=== PATIENT | male | born 1985 | race Caucasian/White ===

== ENCOUNTER 2017-03-26 10:36 | Emergency (ER) | payer OTHER ==
[2017-03-26 10:44] VITALS: RESP 18
[2017-03-26] MEDS ORDERED: RX INFO: IV CONTRAST WAS GIVEN 1 EACH MISC MISCELLANE PRN (10:54)
[2017-03-26] MEDS ORDERED: AZITHROMYCIN 500 MG TAB PO STA (10:57)
[2017-03-26] MEDS ORDERED: DEXAMETHASONE SOD PHOSPHATE 10 MG/ML 1 ML VIAL IV STA (10:58)
[2017-03-26] MEDS ORDERED: IBUPROFEN 400 MG TAB PO STA (10:58)
[2017-03-26 11:22] LABS: Basophils # (A) 0.1 k/uL (0-0.2); Basophils % (A) 0 %; CH 30.6; CHCM 34.8; Eosinophils # (A) 0.1 k/uL (0-0.7); Eosinophils % (A) 1 %; HCT 42.1 % (39.0-53.0); HDW 2.75; HGB 14.6 gm/dL (13.0-17.5); Luc # (Auto) 0.43; Luc % (Auto) 3; Lymphocytes # (A) 1.5 k/uL (1.0-4.8); Lymphocytes % (A) 9 %; MCH 30.6 pg (25.0-35.0); MCHC 34.7 g/dL (31.0-37.0); MCV 88.2 fL (80.0-100.0); Mean Platelet Volume 6.7; Monocytes # (A) 1.3 k/uL (0-1.0); Monocytes % (A) 8 %; Neutrophils # (A) 13.2 k/uL (1.3-7.7); Neutrophils % (A) 79 %; RBC 4.77 m/uL (4.30-5.90); RDW 12.7 % (11.5-15.5); WBC 16.7 k/uL (3.8-10.6)
--- NOTE | 2017-03-26 11:29 | XR ---
EXAMINATION TYPE: XR chest 2V DATE OF EXAM: 03/26/2017 COMPARISON: NONE TECHNIQUE: PA and lateral views submitted. HISTORY: FLU-LIKE SYMPTOMS FINDINGS: The lungs are clear and there is no pneumothorax, pleural effusion, or focal pneumonia. Slightly pr ominent central interstitium. IMPRESSION: 1. Slightly prominent central interstitium may be related to reduced inspiration rather than intersti tial or viral pneumonitis. Correlate clinically.
[2017-03-26 11:41] LABS: ALT 83 U/L (21-72); AST 45 U/L (17-59); Alkaline Phosphatase 130 U/L (38-126); Anion Gap 12 mmol/L; Blood Urea Nitrogen 18 mg/dL (9-20); Calcium 9.2 mg/dL (8.4-10.2); Carbon Dioxide 27 mmol/L (22-30); Chloride 103 mmol/L (98-107); Glucose 106 mg/dL (74-99); Non-African American GFR(MDRD) >60 (>60 ml/min/1.73 sqM); Sodium 142 mmol/L (137-145); Total Protein 8.1 g/dL (6.3-8.2)
[2017-03-26] MEDS ORDERED: ACETAMINOPHEN TAB 500 MG TAB PO STA (12:05)
--- NOTE | 2017-03-26 13:10 | CT ---
EXAMINATION TYPE: CT soft tissue neck w con DATE OF EXAM: 03/26/2017 HISTORY: Difficulty swallowing and throat swelling for 2 weeks COMPARISON: NONE CT DLP: 841 mGycm. Automated Exposure Control for Dose Reduction was Utilized. TECHNIQUE: CT scan of the neck is performed with IV Contrast, patient injected with 100 mL of Omnipa que 300, axial images are obtained, coronal and sagittal reformatted images are reviewed. FINDINGS: Airway: Nasopharyngeal airway shows lobulated symmetric prominence of the posterior adenoidal tonsils . There is marked thickening of the palatine tonsils at level of oropharynx causing narrowing of naso pharyngeal and oropharyngeal airways. Region of epiglottis and vallecula appears within normal limits . Hypopharyngeal airway at level of vocal cords is unremarkable. Visualized thyroid gland and proxima l trachea are within normal limits. Visualized lung apices are clear. Parotid/submandibular glands: No gross abnormality seen. Carotid/Vascular Structures: No significant abnormality is seen. Osseous Structures: Reversal of normal cervical curvature is noted. This injection of dextroconvex sc oliosis or positioning centered in the thoracic spine. Other: Visualized main pulmonary artery is prominent at 3.2 cm on and axial images, CT finding is sug gestive of underlying pulmonary artery hypertension. Need to further investigate by nonemergent cardi ac echo should be based on clinical correlation. There are prominent scattered subcentimeter lymph nodes throughout the neck. There are also abnormal enlarged lymph nodes present bilaterally. For reference there is enlarged left submandibular lymph no de measuring 2.0 x 1.9 cm on axial image 37 x 3.4 cm craniocaudal dimension on sagittal image 71. The re are similar abnormal enlarged right neck lymph nodes at and above the hyoid bone submandibular lev el. No suspicious well-formed fluid collection is seen. There is streak artifact from multiple cavitary fillings involving the molar and premolar tooth bilat erally and maxillary and mandibular level. A few left-sided maxillary and mandibular teeth are absent . No active inflammation at this level is clearly seen. IMPRESSION: Suspect severe tonsillitis with neck adenopathy and mass effect on the nasopharyngeal and oropharyngeal airways. No well-formed fluid collection or abscess is present.
--- NOTE | 2017-03-26 13:40 | ED ---
Fever HPI - General Chief Complaint: Fever Stated Complaint: SORE THROAT, FLU LIKE SYMPTOMS Time Seen by Provider: 03/26/17 10:47 Source: patient Mode of arrival: ambulatory Limitations: no limitations - History of Present Illness Initial Comments: Patient complains of fevers and chills, as well as a sore throat. He just started taking azithromycin yesterday. He is still having fevers and chills. He did not take anything for the fever. He denies any chest or back pain. He has no belly pain. He has no nausea or vomiting. He has had no sick a be or presyncope. He has no neck pain or stiffness. He has no trouble opening his mouth. He is tolerating solid and liquid oral intake. - Related Data Home Medications Medication Instructions Recorded Confirmed Azithromycin [Zithromax Z-pack] See Taper PO DAILY 03/26/17 03/26/17 Dextroamphetamine/Amphetamine 10 mg PO DAILY 03/26/17 03/26/17 [Adderall] Ibuprofen [Motrin] 600 mg PO Q8HR PRN 03/26/17 03/26/17 Allergies Allergy/AdvReac Type Severity Reaction Status Date / Time No Known Allergies Allergy Verified 03/26/17 10:59 Review of Systems ROS Statement: Those systems with pertinent positive or pertinent negative responses have been documented in the HPI. ROS Other: All systems not noted in ROS Statement are negative. Past Medical History Additional Past Medical History / Comment(s): diverticulos History of Any Multi-Drug Resistant Organisms: None Reported Past Surgical History: No Surgical Hx Reported Past Psychological History: No Psychological Hx Reported Smoking Status: Current every day smoker Past Alcohol Use History: Occasional Past Drug Use History: None Reported General Exam Limitations: no limitations General appearance: alert, in no apparent distress Head exam: Present: atraumatic, normocephalic, normal inspection Eye exam: Present: normal appearance, PERRL, EOMI. Absent: scleral icterus, conjunctival injection, periorbital swelling ENT exam: Present: mucous membranes moist, other (Swollen tonsils with exudates) Neck exam: Present: normal inspection. Absent: tenderness, meningismus, lymphadenopathy Respiratory exam: Present: normal lung sounds bilaterally. Absent: respiratory distress, wheezes, rales, rhonchi, stridor Cardiovascular Exam: Present: regular rate, normal rhythm, normal heart sounds. Absent: systolic murmur, diastolic murmur, rubs, gallop, clicks GI/Abdominal exam: Present: soft, normal bowel sounds. Absent: distended, tenderness, guarding, rebound, rigid Extremities exam: Present: normal inspection, full ROM, normal capillary refill. Absent: tenderness, pedal edema, joint swelling, calf tenderness Back exam: Present: normal inspection Neurological exam: Present: alert, oriented X3, CN II-XII intact Psychiatric exam: Present: normal affect, normal mood Skin exam: Present: warm, dry, intact, normal color. Absent: rash Course Vital Signs 03/26/17 03/26/17 10:39 11:52 Temperature 98.9 F 101.4 F H Pulse Rate 120 H Respiratory 18 Rate Blood Pressure 135/80 O2 Sat by Pulse 98 Oximetry Medical Decision Making - Medical Decision Making Patient complains of fever and chills as well as sore throat. I gave him IV Decadron, IV antibiotics. I obtained a chest x-ray which is unremarkable. I obtained a CT of the neck which is negative for abscess or prevertebral soft tissue swelling. Patient is feeling much better on reevaluation. I gave him Motrin and Tylenol. His fever has come down. His vital signs improved. He is tolerating orotate. I do not believe he requires admission to the hospital at this time. He is stable for discharge and outpatient follow-up. - Lab Data Result diagrams: 03/26/17 11:10 03/26/17 11:10 Lab Results 03/26/17 03/26/17 03/26/17 Range/Units 11:10 11:10 11:10 WBC 16.7 H (3.8-10.6) k/uL RBC 4.77 (4.30-5.90) m/uL Hgb 14.6 (13.0-17.5) gm/dL Hct 42.1 (39.0-53.0) % MCV 88.2 (80.0-100.0) fL MCH 30.6 (25.0-35.0) pg MCHC 34.7 (31.0-37.0) g/dL RDW 12.7 (11.5-15.5) % Plt Count 270 (150-450) k/uL Neutrophils % 79 % Lymphocytes % 9 % Monocytes % 8 % Eosinophils % 1 % Basophils % 0 % Neutrophils # 13.2 H (1.3-7.7) k/uL Lymphocytes # 1.5 (1.0-4.8) k/uL Monocytes # 1.3 H (0-1.0) k/uL Eosinophils # 0.1 (0-0.7) k/uL Basophils # 0.1 (0-0.2) k/uL Sodium 142 (137-145) mmol/L Potassium 4.0 (3.5-5.1) mmol/L Chloride 103 (98-107) mmol/L Carbon Dioxide 27 (22-30) mmol/L Anion Gap 12 mmol/L BUN 18 (9-20) mg/dL Creatinine 0.88 (0.66-1.25) mg/dL Est GFR (MDRD) Af Amer >60 (>60 ml/min/1.73 sqM) Est GFR (MDRD) Non-Af >60 (>60 ml/min/1.73 sqM) Glucose 106 H (74-99) mg/dL Calcium 9.2 (8.4-10.2) mg/dL Total Bilirubin 1.0 (0.2-1.3) mg/dL AST 45 (17-59) U/L ALT 83 H (21-72) U/L Alkaline Phosphatase 130 H (38-126) U/L Total Protein 8.1 (6.3-8.2) g/dL Albumin 4.4 (3.5-5.0) g/dL Heterophile Antibody Negative (Negative) Disposition Clinical Impression: Tonsillitis Disposition: HOME SELF-CARE Condition: Good Instructions: Tonsillitis (ED) Referrals: Arvind Rosales MD [Primary Care Provider] - 1-2 days Time of Disposition: 13:40
[2017-03-26 13:46] VITALS: BP 120/68; PULSE 114; TEMP 99.6
== END 2017-03-26 13:45 | disposition home or self-care (01) ==
LOC: EC 10:36
DX: J03.90 Acute tonsillitis, unspecified (principal); F17.200 Nicotine dependence, unspecified, uncomplicated; Z79.899 Other long term (current) drug therapy
CPT/HCPCS: 36415; 80053; 85025; 86308; 71020; 70491; 99284; 96374; J1100; Q9967

== ENCOUNTER 2021-01-12 10:37 | Inpatient (IN) | payer BC, OTHER ==
[2021-01-12] MEDS ORDERED: SODIUM CHLORIDE 0.9% 1,000 ML IV STA (11:12)
[2021-01-12] MEDS ORDERED: KETOROLAC 15 MG/ML 1 ML VIAL IVP STA (11:12)
[2021-01-12] MEDS ORDERED: ONDANSETRON 4 MG/2 ML VIAL IVP STA (11:12)
--- NOTE | 2021-01-12 11:22 | ED ---
Abdominal Pain HPI - General Chief Complaint: Abdominal Pain Stated Complaint: Abd Pain Time Seen by Provider: 01/12/21 10:51 Source: patient Mode of arrival: ambulatory Limitations: no limitations - History of Present Illness Initial Comments: Patient is a 35-year-old male presenting to emergency Department with complaints of increasing lower abdominal pain over the past 5 days. Patient states he has had diverticulitis in the past, he is not sure if it feels similar or not. He does admit to some nausea and vomiting. He is having normal bowel movements. He states the pain started in the middle of his abdomen, now it feels lower on both the right and left sides. Denies any dysuria. He denies any fevers but has woken up and sweats over the last couple nights. No chest pain or shortness of breath, no cough. He has no further complaints at this time. Upon arrival to the ER, his vitals are stable. - Related Data Home Medications Medication Instructions Recorded Confirmed Dextroamphetamine/Amphetamine 20 mg PO TID 01/12/21 01/12/21 [Dextroamp-Amphetamin 20 mg Tab] Ibuprofen [Motrin] 800 mg PO QID PRN 01/12/21 01/12/21 Magnesium Salicylate [Percogesic 580 mg PO Q6H PRN 01/12/21 01/12/21 Backache Relief] Allergies Allergy/AdvReac Type Severity Reaction Status Date / Time morphine AdvReac Vomiting Verified 01/12/21 13:34 Review of Systems ROS Statement: Those systems with pertinent positive or pertinent negative responses have been documented in the HPI. ROS Other: All systems not noted in ROS Statement are negative. Past Medical History Additional Past Medical History / Comment(s): diverticulos History of Any Multi-Drug Resistant Organisms: None Reported Past Surgical History: No Surgical Hx Reported Past Psychological History: No Psychological Hx Reported Smoking Status: Current every day smoker Past Alcohol Use History: Rare Past Drug Use History: None Reported General Exam - General Exam Comments Initial Comments: GENERAL: Patient is well-developed and well-nourished. Patient is nontoxic and in mild distress. HEAD: Atraumatic, normocephalic. EYES: Pupils equal round and reactive to light, extraocular movements intact, sclera anicteric, conjunctiva are normal. Eyelids were unremarkable. ENT: TMs normal, nares patent, oropharynx clear without exudates. Moist mucous membranes. NECK: Normal range of motion, supple without lymphadenopathy or JVD. LUNGS: Unlabored respirations. Breath sounds clear to auscultation bilaterally and equal. No wheezes rales or rhonchi. HEART: Regular rate and rhythm without murmurs, rubs or gallops. ABDOMEN: Soft, tender to palpation of the mid abdomen, left and right lower quadrants, positive rebound. normoactive bowel sounds.No masses appreciated. : Deferred MUSCULOSKELETAL: Normal extremities with adequate strength and normal range of motion, no pitting or edema. No clubbing or cyanosis. NEUROLOGICAL: Patient is alert and oriented x 3. Motor and sensory are also intact. Cranial nerves II through XII grossly intact. Symmetrical smile. Normal speech, normal gait. PSYCH: Normal mood, normal affect. SKIN: Warm, Dry, normal turgor, no rashes or lesions noted. Limitations: no limitations Course Vital Signs 01/12/21 10:43 Temperature 97.7 F Pulse Rate 88 Respiratory 18 Rate Blood Pressure 130/82 O2 Sat by Pulse 98 Oximetry Medical Decision Making - Medical Decision Making Patient is a 35-year-old male here for abdominal pain increasing over the past 5 days. Some nausea and vomiting, no diarrhea. Vitals are stable. Labs are within normal limits, lipase is normal, urine is normal, CT of the abdomen shows diverticulitis with abscess present. I did speak with Dr. Salinas who agrees with admission, patient accepted by Dr. Harrington, with surgery on consult. I will start IV antibiotics with him, pain control and fluids. Patient is in agreement with this plan of care. Case discussed with Dr. Segal. - Lab Data Result diagrams: 01/12/21 11:25 01/12/21 11:25 Lab Results 01/12/21 01/12/21 01/12/21 Range/Units 11:25 11:25 11:25 WBC 8.1 (3.8-10.6) k/uL RBC 4.50 (4.30-5.90) m/uL Hgb 14.0 (13.0-17.5) gm/dL Hct 39.5 (39.0-53.0) % MCV 87.9 (80.0-100.0) fL MCH 31.1 (25.0-35.0) pg MCHC 35.4 (31.0-37.0) g/dL RDW 12.2 (11.5-15.5) % Plt Count 260 (150-450) k/uL MPV 6.8 Neutrophils % 74 % Lymphocytes % 12 % Monocytes % 9 % Eosinophils % 3 % Basophils % 1 % Neutrophils # 5.9 (1.3-7.7) k/uL Lymphocytes # 1.0 (1.0-4.8) k/uL Monocytes # 0.7 (0-1.0) k/uL Eosinophils # 0.3 (0-0.7) k/uL Basophils # 0.1 (0-0.2) k/uL Sodium 139 (137-145) mmol/L Potassium 3.7 (3.5-5.1) mmol/L Chloride 104 (98-107) mmol/L Carbon Dioxide 27 (22-30) mmol/L Anion Gap 8 mmol/L BUN 14 (9-20) mg/dL Creatinine 0.97 (0.66-1.25) mg/dL Est GFR (CKD-EPI)AfAm >90 (>60 ml/min/1.73 sqM) Est GFR (CKD-EPI)NonAf >90 (>60 ml/min/1.73 sqM) Glucose 109 H (74-99) mg/dL Plasma Lactic Acid Mahad (0.7-2.0) mmol/L Calcium 9.0 (8.4-10.2) mg/dL Total Bilirubin 0.7 (0.2-1.3) mg/dL AST 53 (17-59) U/L ALT 45 (4-49) U/L Alkaline Phosphatase 128 H (38-126) U/L Total Protein 7.2 (6.3-8.2) g/dL Albumin 4.1 (3.5-5.0) g/dL Amylase 42 (30-110) U/L Lipase 91 (23-300) U/L Urine Color Yellow Urine Appearance Clear (Clear) Urine pH 6.0 (5.0-8.0) Ur Specific [place] 1.028 (1.001-1.035) Urine Protein Trace H (Negative) Urine Glucose (UA) Negative (Negative) Urine Ketones Negative (Negative) Urine Blood Negative (Negative) Urine Nitrite Negative (Negative) Urine Bilirubin Negative (Negative) Urine Urobilinogen <2.0 (<2.0) mg/dL Ur Leukocyte Esterase Negative (Negative) 01/12/21 Range/Units 11:25 WBC (3.8-10.6) k/uL RBC (4.30-5.90) m/uL Hgb (13.0-17.5) gm/dL Hct (39.0-53.0) % MCV (80.0-100.0) fL MCH (25.0-35.0) pg MCHC (31.0-37.0) g/dL RDW (11.5-15.5) % Plt Count (150-450) k/uL MPV Neutrophils % % Lymphocytes % % Monocytes % % Eosinophils % % Basophils % % Neutrophils # (1.3-7.7) k/uL Lymphocytes # (1.0-4.8) k/uL Monocytes # (0-1.0) k/uL Eosinophils # (0-0.7) k/uL Basophils # (0-0.2) k/uL Sodium (137-145) mmol/L Potassium (3.5-5.1) mmol/L Chloride (98-107) mmol/L Carbon Dioxide (22-30) mmol/L Anion Gap mmol/L BUN (9-20) mg/dL Creatinine (0.66-1.25) mg/dL Est GFR (CKD-EPI)AfAm (>60 ml/min/1.73 sqM) Est GFR (CKD-EPI)NonAf (>60 ml/min/1.73 sqM) Glucose (74-99) mg/dL Plasma Lactic Acid Mahad 0.6 L (0.7-2.0) mmol/L Calcium (8.4-10.2) mg/dL Total Bilirubin (0.2-1.3) mg/dL AST (17-59) U/L ALT (4-49) U/L Alkaline Phosphatase (38-126) U/L Total Protein (6.3-8.2) g/dL Albumin (3.5-5.0) g/dL Amylase (30-110) U/L Lipase (23-300) U/L Urine Color Urine Appearance (Clear) Urine pH (5.0-8.0) Ur Specific [place] (1.001-1.035) Urine Protein (Negative) Urine Glucose (UA) (Negative) Urine Ketones (Negative) Urine Blood (Negative) Urine Nitrite (Negative) Urine Bilirubin (Negative) Urine Urobilinogen (<2.0) mg/dL Ur Leukocyte Esterase (Negative) Disposition Clinical Impression: Diverticulitis of intestine with abscess, Nausea & vomiting Disposition: ADMITTED IP TO THIS HOSP Condition: Stable Decision Date: 01/12/21 Decision Time: 13:03
[2021-01-12 11:42] LABS: Basophils # (A) 0.1 k/uL (0-0.2); Basophils % (A) 1 %; Eosinophils # (A) 0.3 k/uL (0-0.7); Eosinophils % (A) 3 %; HCT 39.5 % (39.0-53.0); Lymphocytes % (A) 12 %; MCH 31.1 pg (25.0-35.0); MCHC 35.4 g/dL (31.0-37.0); MCV 87.9 fL (80.0-100.0); Mean Platelet Volume 6.8; Monocytes # (A) 0.7 k/uL (0-1.0); Monocytes % (A) 9 %; Neutrophils # (A) 5.9 k/uL (1.3-7.7); Neutrophils % (A) 74 %; Platelet Count 260 k/uL (150-450); RDW 12.2 % (11.5-15.5); WBC 8.1 k/uL (3.8-10.6)
[2021-01-12 11:54] LABS: Appearance,Urine Clear (Clear); Bilirubin,Urine Negative (Negative); Blood,Urine Negative (Negative); Color,Urine Yellow; Glucose,Urine (UA) Negative (Negative); Ketones,Urine Negative (Negative); Leukocyte Esterase,Urine Negative (Negative); Nitrite,Urine Negative (Negative); Protein,Urine Trace (Negative); Specific Gravity,Urine 1.028 (1.001-1.035); Urobilinogen,Urine <2.0 mg/dL (<2.0)
[2021-01-12 11:59] LABS: ALT 45 U/L (4-49); AST 53 U/L (17-59); African American GFR (CKD) >90 (>60 ml/min/1.73 sqM); Albumin 4.1 g/dL (3.5-5.0); Alkaline Phosphatase 128 U/L (38-126); Amylase 42 U/L (30-110); Anion Gap 8 mmol/L; Blood Urea Nitrogen 14 mg/dL (9-20); Carbon Dioxide 27 mmol/L (22-30); Chloride 104 mmol/L (98-107); Glucose 109 mg/dL (74-99); Lipase 91 U/L (23-300); Non-African American GFR(CKD) >90 (>60 ml/min/1.73 sqM); Potassium 3.7 mmol/L (3.5-5.1); Sodium 139 mmol/L (137-145); Total Bilirubin 0.7 mg/dL (0.2-1.3); Total Protein 7.2 g/dL (6.3-8.2)
--- NOTE | 2021-01-12 12:38 | CT ---
EXAMINATION TYPE: CT abdomen pelvis w con DATE OF EXAM: 01/12/2021 COMPARISON: None HISTORY: Lower pelvic pain CT DLP: 1423.6 mGycm Automated exposure control for dose reduction was used. CONTRAST: Performed with IV Contrast, patient injected with 100 mL of Isovue 300. The lung bases are clear of consolidation. There is no pleural effusion. There is no pericardial effu fiordaliza. Heart size is normal. Liver spleen stomach pancreas gallbladder appear intact. The bile ducts are not dilated. There is no adrenal mass. Kidneys show satisfactory contrast opacification. There is no hydronephrosis. Ureters a re not dilated. There is no retroperitoneal adenopathy. Bladder is almost empty. There is no inguinal hernia. There is fat stranding around the mid sigmoid colon with wall thickening. There is no free air. There is no ascites. Appendix is difficult to visualize. Appendix appears to be medial and superiorly located. The cecum i s in the pelvis. The lumbar vertebra have normal alignment. The disc spaces are normal. There is no compression fractu re. Posterior elements are intact. Hip joints are intact. There is no hip dysplasia. IMPRESSION: Wall thickening and mild fat stranding around the mid sigmoid colon is suggestive of focal colitis or diverticulitis. There is hypoechoic area measuring 3.5 x 2.5 cm that could be developing abscess or phlegmon or tumor mass. Follow-up is recommended.
[2021-01-12] MEDS ORDERED: PIPERACILLIN-TAZOBACTAM 3.375 GM in SODIUM CHLORIDE 0.9% 100 ML IVPB STA (12:53)
[2021-01-12] MEDS ORDERED: MORPHINE SULFATE 4 MG/ML SYRINGE IV PRN (13:01)
[2021-01-12] MEDS ORDERED: KETOROLAC 15 MG/ML 1 ML VIAL IVP PRN (13:01)
[2021-01-12] MEDS ORDERED: NALOXONE 0.4 MG/ML 1 ML VIAL IV PRN (13:01)
[2021-01-12] MEDS ORDERED: MORPHINE SULFATE 4 MG/ML SYRINGE IVP STA (13:01)
[2021-01-12] MEDS: SODIUM CHLORIDE 0.9% 1,000 ML IV SCH (13:30)
[2021-01-12] MEDS: HYDROmorphone 0.5 MG/0.5 ML SYRINGE IVP PRN ×3 (14:54→21:29)
[2021-01-12] MEDS ORDERED: ALPRAZolam 0.25 MG TAB PO PRN (15:14)
--- NOTE | 2021-01-12 15:25 | P.GSCN ---
History of Present Illness Consult date: 01/12/21 History of present illness: Patient went to [facility] had taco salad, chips, burger then developed abdominal pain for colitis. Last attack of colitis over 5 years at an outside institution. He reports moderate abdominal pain. Recommend IV antibiotics. Clear liquid diet. Advance to low fiber when abdominal pain improves. Past Medical History Additional Past Medical History / Comment(s): diverticulos History of Any Multi-Drug Resistant Organisms: None Reported Past Surgical History: No Surgical Hx Reported Past Psychological History: No Psychological Hx Reported Smoking Status: Current every day smoker Past Alcohol Use History: Rare Past Drug Use History: None Reported Medications and Allergies Home Medications Medication Instructions Recorded Confirmed Type Dextroamphetamine/Amphetamine 20 mg PO TID 01/12/21 01/12/21 History [Dextroamp-Amphetamin 20 mg Tab] Ibuprofen [Motrin] 800 mg PO QID PRN 01/12/21 01/12/21 History Magnesium Salicylate [Percogesic 580 mg PO Q6H PRN 01/12/21 01/12/21 History Backache Relief] Allergies Allergy/AdvReac Type Severity Reaction Status Date / Time morphine AdvReac Vomiting Verified 01/12/21 13:34 Surgical - Exam Vital Signs Temp Pulse Resp BP Pulse Ox 97.7 F 88 18 130/82 98 01/12/21 10:43 01/12/21 10:43 01/12/21 10:43 01/12/21 10:43 01/12/21 10:43 Results - Labs 01/12/21 11:25 01/12/21 11:25 Abnormal Lab Results - Last 24 Hours (Table) 01/12/21 01/12/21 01/12/21 Range/Units 11:25 11:25 11:25 Glucose 109 H (74-99) mg/dL Plasma Lactic Acid Mahad 0.6 L (0.7-2.0) mmol/L Alkaline Phosphatase 128 H (38-126) U/L Urine Protein Trace H (Negative) Diabetes panel 01/12/21 Range/Units 11:25 Sodium 139 (137-145) mmol/L Potassium 3.7 (3.5-5.1) mmol/L Chloride 104 (98-107) mmol/L Carbon Dioxide 27 (22-30) mmol/L BUN 14 (9-20) mg/dL Creatinine 0.97 (0.66-1.25) mg/dL Glucose 109 H (74-99) mg/dL Calcium 9.0 (8.4-10.2) mg/dL AST 53 (17-59) U/L ALT 45 (4-49) U/L Alkaline Phosphatase 128 H (38-126) U/L Total Protein 7.2 (6.3-8.2) g/dL Albumin 4.1 (3.5-5.0) g/dL Calcium panel 01/12/21 Range/Units 11:25 Calcium 9.0 (8.4-10.2) mg/dL Albumin 4.1 (3.5-5.0) g/dL Pituitary panel 01/12/21 Range/Units 11:25 Sodium 139 (137-145) mmol/L Potassium 3.7 (3.5-5.1) mmol/L Chloride 104 (98-107) mmol/L Carbon Dioxide 27 (22-30) mmol/L BUN 14 (9-20) mg/dL Creatinine 0.97 (0.66-1.25) mg/dL Glucose 109 H (74-99) mg/dL Calcium 9.0 (8.4-10.2) mg/dL Adrenal panel 01/12/21 Range/Units 11:25 Sodium 139 (137-145) mmol/L Potassium 3.7 (3.5-5.1) mmol/L Chloride 104 (98-107) mmol/L Carbon Dioxide 27 (22-30) mmol/L BUN 14 (9-20) mg/dL Creatinine 0.97 (0.66-1.25) mg/dL Glucose 109 H (74-99) mg/dL Calcium 9.0 (8.4-10.2) mg/dL Total Bilirubin 0.7 (0.2-1.3) mg/dL AST 53 (17-59) U/L ALT 45 (4-49) U/L Alkaline Phosphatase 128 H (38-126) U/L Total Protein 7.2 (6.3-8.2) g/dL Albumin 4.1 (3.5-5.0) g/dL
--- NOTE | 2021-01-12 16:28 | HP ---
HISTORY AND PHYSICAL DATE IS SERVICE: 01/12/2001 I am covering for Dr. Palomares. CHIEF COMPLAINTS: Abdominal pain. HISTORY OF PRESENT ILLNESS: This 35-year-old gentleman with a past medical history of diverticulosis, history of nicotine dependence, being followed by Dr. Palomares in the outpatient setting, was complaining of abdominal pain for the last 5 days. The patient has history of diverticulitis in the past. Pain was mostly in the lower part of the abdomen and the patient had normal bowel movements. Because of lack of improvement, the patient came to [facility] and admitted to the hospital for further evaluation and treatment. The white count is normal. CT scan of the abdomen and pelvis was done which showed wall thickening and mild fat stranding of the mid sigmoid colon, suggestive of focal colitis. Hyperechoic area of 3.5, 2.7 cm could be developing abscess or phlegmon was also noted. The patient admitted for further evaluation and treatment. There is no history of fever, rigors or chills at this time. PAST MEDICAL HISTORY: History of nicotine dependence. History of diverticulitis previously. MEDICATIONS: Magnesium salicylate, Motrin, ALLERGIES: MORPHINE. FAMILY HISTORY: No history of any heart disease or strokes in the family. SOCIAL HISTORY: History of smoking. Occasional alcohol intake. REVIEW OF SYSTEMS: ENT: No diminished vision. No diminished hearing. CARDIOVASCULAR: No angina. RESPIRATIONS: No cough or hemoptysis. GI as mentioned earlier. : No dysuria. NERVOUS SYSTEM: No numbness or weakness. ALLERGY/IMMUNOLOGY: No asthma or hayfever. MUSCULOSKELETAL as mentioned earlier. HEMATOLOGY/ONCOLOGY: No history of anemia. ENDOCRINE: No history of diabetes or hypothyroidism. CONSTITUTIONAL: As mentioned earlier. DERMATOLOGY: Negative. RHEUMATOLOGY: Negative. PSYCHIATRY as mentioned earlier. PHYSICAL EXAMINATION: Alert and oriented times three. Pulse 88, blood pressure 130/82, respirations 18. Temperature 97.7, pulse ox 98% on room air. HEENT: Conjunctivae normal. NECK: No JVD. CARDIOVASCULAR: S1, S2 muffled. RESPIRATION: Breath sounds diminished in the bases. No rhonchi. No crackles. ABDOMEN: Soft. Mild diffuse distention. Mild diffuse tenderness especially lower part. No guarding. No rigidity. No mass palpable. LEGS: No edema. No swelling. NERVOUS SYSTEM: Higher functions as mentioned earlier. Moves all four limbs. No focal deficits. LYMPHATICS: No lymph nodes palpable in the neck, axillae or groin. SKIN: No ulcer, no rash and no bleeding. JOINTS: No active deforming arthropathy. LABS: CBC within normal limits. Lactic acid 0.6. Glucose 109. ASSESSMENT: 1. Abdominal pain with acute diverticulitis with possible diverticular abscess. 2. History of diverticulitis previously. 3. History of nicotine dependence. 4. FULL CODE. RECOMMENDATIONS AND DISCUSSION: This 35-year-old gentleman who presented with multiple complex medical issues, we will monitor the patient closely. We will initiate broad-spectrum IV antibiotics. Symptomatic treatment of pain. Surgical evaluation. Dr. Palomares will follow tomorrow. DVT prophylaxis. Smoking cessation. A copy of dictation being forwarded to Dr. Palomares's office. MMANNA MARIEL / MICHAELN: [id number] / MTDD
[2021-01-12] MEDS: NICOTINE 14MG/24HR PATCH TRANSDERM SCH (16:54)
[2021-01-12] MEDS: PANTOPRAZOLE 40 MG/10 ML VIAL IVP SCH (16:54)
[2021-01-12] MEDS: metroNIDAZOLE-NS PMX 500 MG in SALINE 1 100ML.BAG IVPB SCH ×2 (16:55→23:19)
[2021-01-12] MEDS: AMPHETAMINE PO SCH (17:04)
[2021-01-12] MEDS: [UNRECOGNIZED DRUG - OTHER] PO SCH (17:04)
[2021-01-12] MEDS: DEXTROAMPHETAMINE PO SCH (17:04)
[2021-01-12] MEDS: HYDROcodone/APAP 5-325MG 1 EACH TAB PO PRN (19:36)
[2021-01-12] MEDS: HEPARIN SODIUM,PORCINE/PF 5,000 UNIT/0.5 ML SYRINGE SQ SCH (19:37)
[2021-01-12] MEDS: ONDANSETRON 4 MG/2 ML VIAL IVP PRN (21:30)
[2021-01-12] MEDS: KETOROLAC 15 MG/ML 1 ML VIAL IVP SCH (23:19)
[2021-01-13] MEDS: PIPERACILLIN-TAZOBACTAM 3.375 GM in SODIUM CHLORIDE 0.9% 100 ML IVPB SCH ×3 (00:35→18:46)
[2021-01-13] MEDS: HYDROmorphone 0.5 MG/0.5 ML SYRINGE IVP PRN ×2 (03:09→07:23)
[2021-01-13] MEDS: SODIUM CHLORIDE 0.9% 1,000 ML IV SCH ×2 (04:40→17:06)
[2021-01-13] MEDS: KETOROLAC 15 MG/ML 1 ML VIAL IVP SCH (06:15)
[2021-01-13] MEDS: AMPHETAMINE PO SCH ×3 (07:05→18:26)
[2021-01-13] MEDS: DEXTROAMPHETAMINE PO SCH ×3 (07:05→18:26)
[2021-01-13] MEDS: [UNRECOGNIZED DRUG - OTHER] PO SCH ×3 (07:05→18:26)
[2021-01-13] MEDS: metroNIDAZOLE-NS PMX 500 MG in SALINE 1 100ML.BAG IVPB SCH ×3 (07:24→23:17)
[2021-01-13] MEDS: PANTOPRAZOLE 40 MG/10 ML VIAL IVP SCH (07:25)
[2021-01-13] MEDS: HEPARIN SODIUM,PORCINE/PF 5,000 UNIT/0.5 ML SYRINGE SQ SCH ×2 (07:25→20:14)
[2021-01-13] MEDS: NICOTINE 14MG/24HR PATCH TRANSDERM SCH (07:25)
[2021-01-13 09:23] LABS: Basophils # (A) 0.03 X 10*3/uL (0.00-0.10); Basophils % (A) 0.3 %; Eosinophils # (A) 0.19 X 10*3/uL (0.04-0.35); Eosinophils % (A) 1.7 %; HCT 36.7 % (39.6-50.0); HGB 12.1 g/dL (13.0-17.0); Lymphocytes # (A) 1.55 X 10*3/uL (0.90-5.00); Lymphocytes % (A) 13.8 %; MCH 30.4 pg (27.0-32.0); MCV 92.2 fL (80.0-97.0); Monocytes % (A) 10.7 %; Neutrophils # (A) 8.19 X 10*3/uL (1.80-7.70); Neutrophils % (A) 73.1 %; Platelet Count 259 X 10*3/uL (140-440); RBC 3.98 X 10*6/uL (4.40-5.60); RDW 12.2 % (11.5-14.5)
[2021-01-13] MEDS: HYDROcodone/APAP 5-325MG 1 EACH TAB PO PRN (10:03)
[2021-01-13 10:29] LABS: African American GFR (CKD) 126.9 (60.0-200.0); Anion Gap 6.8 mmol/L (4.00-12.00); BUN/Creat Ratio 13.33 Ratio (12.00-20.00); Calcium 8.3 mg/dL (8.7-10.3); Carbon Dioxide 27.2 mmol/L (21.6-31.8); Non-African American GFR(CKD) 109.5 (60.0-200.0); Potassium 3.5 mmol/L (3.5-5.5)
[2021-01-13] MEDS: HYDROmorphone 1 MG/ML 1 ML SYRINGE IVP PRN ×3 (11:19→20:13)
[2021-01-13] MEDS: ONDANSETRON 4 MG/2 ML VIAL IVP PRN (12:25)
--- NOTE | 2021-01-13 13:22 | HP ---
HISTORY AND PHYSICAL CHIEF COMPLAINT: Abdominal pain for a week. HISTORY OF PRESENT ILLNESS: This is the first known admission for this 35-year-old white male. He started having lower abdominal pain about a week ago. Gradually grew worse and is associated with nausea and vomiting. Pain grew much worse and he came to the emergency room where he was diagnosed as having diverticulitis and apparently an associated abscess. He is admitted for IV antibiotics, pain management, and surgical consult. REVIEW OF SYSTEMS: He has had no headaches, neurologic problems, chest pain, hematemesis, melena, hematochezia, jaundice, hepatitis, renal failure, incontinence, dysuria, hematuria, diabetes. Past medical history, family history and personal and social histories reveal he is ALLERGIC TO MORPHINE. He has been on Adderall and magnesium salicylate for pain. PHYSICAL EXAMINATION: Temperature is 99.7 with a pulse of 89, respiration 20 and blood pressure 130/80. GENERAL: He appeared to be well developed, well nourished, and in some discomfort. SKIN color is normal. Skin is warm, dry. LYMPH nodes were not enlarged. HEAD, ears, eyes, nose, mouth and throat were normal. NECK veins are not distended. Thyroid is not enlarged. CHEST is clear. CARDIAC exam is normal with no murmurs or extra sounds. ABDOMEN is soft and slightly protuberant. He is very tender in the right lower quadrant with guarding. Bowel sounds are present. EXTREMITIES are normal. IMPRESSION: Diverticulitis and possible pericolic abscess. PLAN: 1. Bedrest. 2. IV fluids of the IV antibiotics. 3. Consult with General Surgery. MMODL / IJN: [id number] /
--- NOTE | 2021-01-13 13:25 | PN ---
PROGRESS NOTE DATE OF SERVICE: 01/13/2021. CHIEF COMPLAINT: Diverticulitis. HISTORY OF PRESENT ILLNESS: This gentleman is fairly comfortable. At times the pain wells up. He has had no vomiting. PHYSICAL EXAMINATION: Chest is clear. Cardiac exam is normal. VITAL SIGNS: Normal. He is still very tender in the right lower quadrant. IMPRESSION: Diverticulitis with possible pericolic abscess. PLAN: Continue with conservative manage with IV antibiotics and wait to see if there will have to be an intervention for potential abscess. MMODL / IJN: [id number] /
--- NOTE | 2021-01-13 14:36 | P.PN ---
Subjective Progress Note Date: 01/13/21 Family is at bedside. Abdominal pain was worse this morning requiring increase in pain medications. He confirms tobacco use. Dietary restrictions reviewed. WBC is elevated. ABDOMEN: No peritonitis. LABS: WBC elevated. ASSESSMENT: 1. Acute diverticulitis PLAN: 1. Continue IV antibiotics 2. Surgical options described should his condition decline. 3. Strict tobacco cessation reviewed 4. Continue clear liquid diet 5. Dietitian consult advised for diverticulitis. Objective - Vital Signs Vital signs: Vital Signs Temp 98.3 F 01/13/21 13:38 Pulse 71 01/13/21 13:38 Resp 16 01/13/21 13:38 BP 124/80 01/13/21 13:38 Pulse Ox 96 01/13/21 13:38 Intake & Output 01/12/21 01/13/21 01/13/21 18:59 06:59 18:59 Weight 99.79 kg Other: Voiding Method Toilet Toilet # Voids 2 2 - Labs CBC & Chem 7: 01/13/21 05:38 01/13/21 05:38 Labs: Abnormal Lab Results - Last 24 Hours (Table) 01/13/21 01/13/21 Range/Units 05:38 05:38 WBC 11.20 H (4.50-10.00) X 10*3/uL RBC 3.98 L (4.40-5.60) X 10*6/uL Hgb 12.1 L (13.0-17.0) g/dL Hct 36.7 L (39.6-50.0) % Neutrophils # 8.19 H (1.80-7.70) X 10*3/uL Monocytes # 1.20 H (0.20-1.00) X 10*3/uL Calcium 8.3 L (8.7-10.3) mg/dL
[2021-01-14] MEDS: PIPERACILLIN-TAZOBACTAM 3.375 GM in SODIUM CHLORIDE 0.9% 100 ML IVPB SCH ×3 (00:22→16:54)
[2021-01-14] MEDS: HYDROmorphone 1 MG/ML 1 ML SYRINGE IVP PRN ×6 (03:57→18:39)
[2021-01-14] MEDS: ONDANSETRON 4 MG/2 ML VIAL IVP PRN ×2 (03:57→15:49)
[2021-01-14] MEDS: metroNIDAZOLE-NS PMX 500 MG in SALINE 1 100ML.BAG IVPB SCH ×3 (07:40→23:43)
[2021-01-14] MEDS: NICOTINE 14MG/24HR PATCH TRANSDERM SCH (07:41)
[2021-01-14] MEDS: PANTOPRAZOLE 40 MG/10 ML VIAL IVP SCH (07:41)
[2021-01-14] MEDS: HEPARIN SODIUM,PORCINE/PF 5,000 UNIT/0.5 ML SYRINGE SQ SCH ×2 (07:41→21:22)
[2021-01-14] MEDS: [UNRECOGNIZED DRUG - OTHER] PO SCH ×3 (10:12→18:19)
[2021-01-14] MEDS: DEXTROAMPHETAMINE PO SCH ×3 (10:12→18:19)
[2021-01-14] MEDS: AMPHETAMINE PO SCH ×3 (10:12→18:19)
--- NOTE | 2021-01-14 11:14 | P.PN ---
Subjective Progress Note Date: 01/14/21 CHIEF COMPLAINT: Abdominal pain HISTORY OF PRESENT ILLNESS: Patient is followed for acute diverticulitis. Patient still complaining of left lower quadrant pain. He reports that is slightly improved since admission. He did have an episode of vomiting last night and has been having some nausea. He is having flatus. No bowel movement. Currently on a clear liquid diet. Afebrile. WBC has gone down from 11.2-10.98 PHYSICAL EXAM: VITAL SIGNS: Reviewed GENERAL: Well-developed in no acute distress. HEENT: No sclera icterus. Extraocular movements grossly intact. Moist buccal mucosa. Head is atraumatic, normocephalic. Hears conversational speech. No nasal drainage. NECK: Supple without lymphadenopathy. CHEST: Non-labored respirations and equal bilateral excursions. CARDIOVASCULAR: Palpable 2+ radial pulses. ABDOMEN: Soft. Nondistended. Tenderness with palpation of the left lower kaelyn drant MUSCULOSKELETAL: No clubbing or cyanosis. NEUROLOGIC: No focal or lateralizing signs. Cranial nerves II through XII grossly intact. PSYCH: Appropriate affect. Alert and oriented to person, place and time. SKIN: Well perfused. Good skin turgor. ASSESSMENT: 1. Acute diverticulitis 2. Nicotine dependence PLAN: 1. Continue IV antibiotics 2. Surgical options described should his condition decline. 3. Strict tobacco cessation reviewed 4. Continue clear liquid diet 5. Dietitian consult advised for diverticulitis. 6. Continue pain medication as needed Physician Straightener Hand note has been reviewed by physician. Signing provider agrees with the documented findings, assessment, and plan of care. Objective - Vital Signs Vital signs: Vital Signs Temp 97.8 F 01/14/21 07:12 Pulse 75 01/14/21 07:12 Resp 18 01/14/21 07:12 BP 119/76 01/14/21 07:12 Pulse Ox 97 01/14/21 07:12 Intake & Output 01/13/21 01/14/21 01/14/21 18:59 06:59 18:59 Other: Voiding Method Toilet Toilet # Voids 3 # Bowel Movements 1 - Labs CBC & Chem 7: 01/14/21 06:23 01/13/21 05:38
[2021-01-14] MEDS: SODIUM CHLORIDE 0.9% 1,000 ML IV SCH ×2 (11:16→21:29)
[2021-01-14 11:25] LABS: Basophils # (A) 0.03 X 10*3/uL (0.00-0.10); Basophils % (A) 0.3 %; Eosinophils # (A) 0.18 X 10*3/uL (0.04-0.35); Eosinophils % (A) 1.6 %; HCT 36.7 % (39.6-50.0); Lymphocytes # (A) 1.17 X 10*3/uL (0.90-5.00); Lymphocytes % (A) 10.7 %; MCH 29.9 pg (27.0-32.0); MCHC 32.7 g/dL (32.0-37.0); MCV 91.3 fL (80.0-97.0); Monocytes % (A) 9.1 %; Neutrophils # (A) 8.56 X 10*3/uL (1.80-7.70); Neutrophils % (A) 77.9 %; Platelet Count 281 X 10*3/uL (140-440); RBC 4.02 X 10*6/uL (4.40-5.60); WBC 10.98 X 10*3/uL (4.50-10.00)
[2021-01-14 11:57] VITALS: BMI 29.8
--- NOTE | 2021-01-14 18:45 | PN ---
PROGRESS NOTE DATE OF SERVICE: 01/14/2021. CHIEF COMPLAINT: Diverticulitis with possible abscess. HISTORY OF PRESENT ILLNESS: Gentleman's discomfort is a little bit better. He seems to be clinically improving. PHYSICAL EXAMINATION: Chest is clear. Cardiac exam is normal. He is still quite tender in the lower abdomen, particularly on the right. Bowel sounds are heard. IMPRESSION: Diverticulitis and possible pericolic abscess. PLAN: Continue with IV fluids and antibiotics and await further recommendations from General Surgery. MMODL / IJN: [id number] /
[2021-01-14] MEDS: HYDROcodone/APAP 5-325MG 1 EACH TAB PO PRN (21:22)
[2021-01-15] MEDS: HYDROmorphone 1 MG/ML 1 ML SYRINGE IVP PRN ×5 (00:50→21:41)
[2021-01-15] MEDS: PIPERACILLIN-TAZOBACTAM 3.375 GM in SODIUM CHLORIDE 0.9% 100 ML IVPB SCH ×3 (00:50→15:32)
[2021-01-15] MEDS: [UNRECOGNIZED DRUG - OTHER] PO SCH ×3 (05:33→15:35)
[2021-01-15] MEDS: DEXTROAMPHETAMINE PO SCH ×3 (05:33→15:35)
[2021-01-15] MEDS: AMPHETAMINE PO SCH ×3 (05:33→15:35)
[2021-01-15] MEDS: HYDROcodone/APAP 5-325MG 1 EACH TAB PO PRN (06:15)
[2021-01-15] MEDS: ONDANSETRON 4 MG/2 ML VIAL IVP PRN ×2 (06:15→13:16)
[2021-01-15] MEDS: PANTOPRAZOLE 40 MG/10 ML VIAL IVP SCH (07:24)
[2021-01-15] MEDS: metroNIDAZOLE-NS PMX 500 MG in SALINE 1 100ML.BAG IVPB SCH ×3 (07:25→23:50)
[2021-01-15] MEDS: NICOTINE 14MG/24HR PATCH TRANSDERM SCH (07:25)
[2021-01-15] MEDS: HEPARIN SODIUM,PORCINE/PF 5,000 UNIT/0.5 ML SYRINGE SQ SCH ×2 (07:26→21:27)
[2021-01-15] MEDS: SODIUM CHLORIDE 0.9% 1,000 ML IV SCH ×2 (07:26→21:48)
[2021-01-15 09:16] LABS: Basophils % (A) 0 %; Eosinophils # (A) 0.2 k/uL (0-0.7); Eosinophils % (A) 2 %; HGB 12.5 gm/dL (13.0-17.5); Lymphocytes # (A) 1.3 k/uL (1.0-4.8); Lymphocytes % (A) 12 %; MCH 30.2 pg (25.0-35.0); MCHC 34.6 g/dL (31.0-37.0); MCV 87.4 fL (80.0-100.0); Mean Platelet Volume 6.8; Monocytes # (A) 0.7 k/uL (0-1.0); Monocytes % (A) 7 %; Neutrophils # (A) 8.2 k/uL (1.3-7.7); Neutrophils % (A) 77 %; Platelet Count 316 k/uL (150-450); RBC 4.12 m/uL (4.30-5.90); RDW 12.1 % (11.5-15.5); WBC 10.6 k/uL (3.8-10.6)
[2021-01-15 09:39] LABS: African American GFR (CKD) >90 (>60 ml/min/1.73 sqM); Anion Gap 7 mmol/L; Blood Urea Nitrogen 15 mg/dL (9-20); Calcium 8.7 mg/dL (8.4-10.2); Carbon Dioxide 29 mmol/L (22-30); Chloride 104 mmol/L (98-107); Glucose 109 mg/dL (74-99); Non-African American GFR(CKD) >90 (>60 ml/min/1.73 sqM); Potassium 3.6 mmol/L (3.5-5.1); Sodium 140 mmol/L (137-145)
[2021-01-15] MEDS: IOPAMIDOL CONTRAST (ORAL USE) VIAL PO PRN ×2 (10:07→11:06)
--- NOTE | 2021-01-15 12:22 | CT ---
EXAMINATION TYPE: CT abdomen pelvis w con DATE OF EXAM: 01/15/2021 COMPARISON: 01/12/2021 HISTORY: Diverticulitis with abscess CT DLP: 1722.9 mGycm CONTRAST: CT scan of the abdomen and pelvis is performed with Oral Contrast and with IV Contrast, patient injec jd with 100 mL of Isovue 300. FINDINGS: LUNG BASES-: No visible nodule. Basilar patchy density may reflect atelectasis or infiltrate. LIVER/GB: No calcified gallstones. No space occupying hepatic lesion. Biliary tree is of normal ca liber. PANCREAS: No inflammation. No distinct mass. SPLEEN: No splenic enlargement. No lesion seen. ADRENALS: No nodule. No thickening. KIDNEYS/BLADDER: No hydronephrosis. No nephrolithiasis. No distinct renal mass. Urinary bladder g rossly unremarkable. BOWEL: Normal appendix. Again noted is sigmoid wall thickening with focal masslike area measuring 4.3 cm. This could reflect an intramural abscess however neoplasm is not excluded. There is mild surroun ding inflammatory change. The overall appearance is stable relative to the prior study. GENITAL ORGANS: No gross abnormality. LYMPH NODES: No greater than 1cm abdominal or pelvic lymph nodes are appreciated. AORTA: No significant abnormality. OSSEOUS STRUCTURES: No significant abnormality is seen. OTHER: No significant additional abnormality is seen. IMPRESSION: 1. Again noted is sigmoid wall thickening with focal masslike area measuring 4.3 cm. This could refle ct an intramural abscess however neoplasm is not excluded. There is mild surrounding inflammatory leo nge. The overall appearance is stable
--- NOTE | 2021-01-15 15:46 | P.PN ---
Subjective Progress Note Date: 01/15/21 CHIEF COMPLAINT: Abdominal pain HISTORY OF PRESENT ILLNESS: Patient is followed for acute diverticulitis. Patient reports improvement in his left lower quadrant abdominal pain. He did have some nausea earlier this morning. He denies any vomiting. He is having flatus. No bowel movement. Afebrile. White count 10.6 Computed tomography scan abdomen and pelvis noted sigmoid wall thickening with focal masslike measuring 4.3 cm this it could reflect an intramural abscess however neoplasm is not excluded. There is mild surrounding inflammatory change. The overall appearance is stable. PHYSICAL EXAM: VITAL SIGNS: Reviewed GENERAL: Well-developed in no acute distress. HEENT: No sclera icterus. Extraocular movements grossly intact. Moist buccal mucosa. Head is atraumatic, normocephalic. Hears conversational speech. No nasal drainage. NECK: Supple without lymphadenopathy. CHEST: Non-labored respirations and equal bilateral excursions. CARDIOVASCULAR: Palpable 2+ radial pulses. ABDOMEN: Soft. Nondistended. Tenderness with palpation of the left lower quadrant MUSCULOSKELETAL: No clubbing or cyanosis. NEUROLOGIC: No focal or lateralizing signs. Cranial nerves II through XII gr ossly intact. PSYCH: Appropriate affect. Alert and oriented to person, place and time. SKIN: Well perfused. Good skin turgor. ASSESSMENT: 1. Acute diverticulitis with possible abscess 2. Nicotine dependence PLAN: -Recommend colonoscopy in 4-6 weeks -Anticipate discharge possibly tomorrow -Continue IV antibiotics -Advance diet to low fiber -Strict tobacco cessation reviewed -Dietitian consult advised for diverticulitis. -Continue pain medication as needed Physician Research Professor note has been reviewed by physician. Signing provider agrees with the documented findings, assessment, and plan of care. Objective - Vital Signs Vital signs: Vital Signs Temp 98.3 F 01/15/21 14:00 Pulse 68 01/15/21 14:00 Resp 16 01/15/21 14:00 BP 134/90 01/15/21 14:00 Pulse Ox 97 01/15/21 14:00 Intake & Output 01/14/21 01/15/21 01/15/21 18:59 06:59 18:59 Weight 99.79 kg Other: Voiding Method Toilet Toilet Toilet # Voids 2 - Labs CBC & Chem 7: 01/15/21 08:43 01/15/21 08:43 Labs: Abnormal Lab Results - Last 24 Hours (Table) 01/15/21 01/15/21 Range/Units 08:43 08:43 RBC 4.12 L (4.30-5.90) m/uL Hgb 12.5 L (13.0-17.5) gm/dL Hct 36.0 L (39.0-53.0) % Neutrophils # 8.2 H (1.3-7.7) k/uL Glucose 109 H (74-99) mg/dL
--- NOTE | 2021-01-15 17:30 | PN ---
PROGRESS NOTE DATE OF SERVICE: 01/15/2021. CHIEF COMPLAINT: Diverticulitis. HISTORY OF PRESENT ILLNESS: This gentleman remains fairly stable. Temperature has been down. Continues to have lower abdominal discomfort and pain. PHYSICAL EXAMINATION: Chest is clear. Cardiac exam is normal. He is strip machine tender in the lower abdomen. IMPRESSION: Diverticulitis with possible pericolic abscess. PLAN: Repeat CT of the abdomen and pelvis. MMODL / IJN: [id number] /
[2021-01-16] MEDS: PIPERACILLIN-TAZOBACTAM 3.375 GM in SODIUM CHLORIDE 0.9% 100 ML IVPB SCH ×2 (01:06→07:26)
[2021-01-16] MEDS: ONDANSETRON 4 MG/2 ML VIAL IVP PRN (04:04)
[2021-01-16] MEDS: HYDROmorphone 1 MG/ML 1 ML SYRINGE IVP PRN ×2 (04:04→07:30)
[2021-01-16] MEDS: DEXTROAMPHETAMINE PO SCH ×2 (07:21→12:01)
[2021-01-16] MEDS: AMPHETAMINE PO SCH ×2 (07:21→12:01)
[2021-01-16] MEDS: [UNRECOGNIZED DRUG - OTHER] PO SCH ×2 (07:21→12:01)
[2021-01-16] MEDS: PANTOPRAZOLE 40 MG/10 ML VIAL IVP SCH (07:25)
[2021-01-16] MEDS: NICOTINE 14MG/24HR PATCH TRANSDERM SCH (07:26)
[2021-01-16] MEDS: HEPARIN SODIUM,PORCINE/PF 5,000 UNIT/0.5 ML SYRINGE SQ SCH (07:26)
[2021-01-16] MEDS: metroNIDAZOLE-NS PMX 500 MG in SALINE 1 100ML.BAG IVPB SCH (07:26)
[2021-01-16 07:54] VITALS: BP 115/69; PULSE 62; RESP 18; TEMP 98.4
--- NOTE | 2021-01-16 11:23 | P.PN ---
Subjective Progress Note Date: 01/16/21 CHIEF COMPLAINT: Abdominal pain HISTORY OF PRESENT ILLNESS: Patient is followed for acute diverticulitis with possible abscess. Patient reports improvement in his abdominal pain. He is tolerating diet. He is having bowel movements. He has been up and ambulating. He is afebrile. WBC 10.6 yesterday PHYSICAL EXAM: VITAL SIGNS: Reviewed GENERAL: Well-developed in no acute distress. HEENT: No sclera icterus. Extraocular movements grossly intact. Moist buccal mucosa. Head is atraumatic, normocephalic. Hears conversational speech. No nasal drainage. NECK: Supple without lymphadenopathy. CHEST: Non-labored respirations and equal bilateral excursions. CARDIOVASCULAR: Palpable 2+ radial pulses. ABDOMEN: Soft. Nondistended. MUSCULOSKELETAL: No clubbing or cyanosis. NEUROLOGIC: No focal or lateralizing signs. Cranial nerves II through XII grossly intact. PSYCH: Appropriate affect. Alert and oriented to person, place and time. SKIN: Well perfused. Good skin turgor. ASSESSMENT: 1. Acute diverticulitis with possible abscess 2. Nicotine dependence PLAN: -Patient is stable for discharge from surgical standpoint -Discharge antibiotics per medicine service -Recommend colonoscopy in 4-6 weeks -Strict tobacco cessation reviewed Physician Plastic Parts Fabricator Trimmer note has been reviewed by physician. Signing provider agrees with the documented findings, assessment, and plan of care. Objective - Vital Signs Vital signs: Vital Signs Temp 98.4 F 01/16/21 07:53 Pulse 62 01/16/21 07:53 Resp 18 01/16/21 07:53 BP 115/69 01/16/21 07:53 Pulse Ox 94 L 01/16/21 07:53 Intake & Output 01/15/21 01/16/21 01/16/21 18:59 06:59 18:59 Other: Voiding Method Toilet Toilet - Labs CBC & Chem 7: 01/15/21 08:43 01/15/21 08:43
[2021-01-16] MEDS: SODIUM CHLORIDE 0.9% 1,000 ML IV SCH (12:00)
[2021-01-16] MEDS ORDERED: metroNIDAZOLE 500 MG TAB PO SCH (16:00)
--- NOTE | 2021-01-16 20:30 | DS ---
DISCHARGE SUMMARY CHIEF COMPLAINT: Abdominal pain. HISTORY OF PRESENT ILLNESS AND PHYSICAL EXAMINATION: Details of this man's history and physical can be found in the initial workup. LABORATORY STUDIES: While he was in a hospital he had laboratory studies, details of which can be found in the laboratory section of her chart. COURSE IN THE HOSPITAL: After admission he was placed on bedrest, started on intravenous fluids and IV antibiotics. Surgery was consult. His abdominal pain continued for several days before it slowly began to subside. There was a question of whether or not he had a pericolic abscess. He clinically was improving and a followup CT suggested that there could be an abscess or that this could be localized swelling. He is nontender and without pain and afebrile. It was felt he could be discharged on the . He will go home on Augmentin and Flagyl. He will be seen in the next day or 2 and will be followed closely. FINAL DIAGNOSES: 1. Diverticulitis. 2. Possible paracolic abscess. OPERATIONS: None. CONSULTATIONS: General surgery. He is improved. MMODL / MICHAELN: [id number] /
[2021-01-16] MEDS ORDERED: AMOXIC-POT CLAV 875-125MG 1 EACH TAB PO SCH (21:00)
[2021-01-17] MEDS ORDERED: PANTOPRAZOLE 40 MG TABLET PO SCH (07:30)
== END 2021-01-16 12:39 | disposition home or self-care (01) | DRG 392 ==
LOC: EC 10:37 → 4SSUR 12:50
PROVIDERS: ADMIT Family Medicine; ATTEND Family Medicine
DX: K57.20 Diverticulitis of large intestine with perforation and abscess without bleeding (principal); K52.9 Noninfective gastroenteritis and colitis, unspecified; F17.210 Nicotine dependence, cigarettes, uncomplicated; E87.71 Transfusion associated circulatory overload; Z20.822 Contact with and (suspected) exposure to COVID-19; Y84.8 Other medical procedures as the cause of abnormal reaction of the patient, or of later complication, without mention of misadventure at the time of the procedure; Z88.5 Allergy status to narcotic agent; Z71.6 Tobacco abuse counseling
CPT/HCPCS: 36415; 74177; 80048; 80053; 81003; 82150; 83605; 83690; 85025; 87635; 96361; 96374; 96375; 99285

== ENCOUNTER → 2022-02-17 | Outpatient (CLI) | payer BC, OTHER ==
[2022-02-17 09:37] VITALS: BP 128/85; PULSE 87; RESP 18; TEMP 98.3
--- NOTE | 2022-02-17 10:09 | P.PAINPG ---
PQRS Measure Charge Sheet Comment: HISTORY OF PRESENT ILLNESS: 37 yr old male as a referral from [facility] presents today w severe and chronic LBP secondary to L4-L5, L5-S1 DDD and disc bulges for evaluation. Pt states his pain level is currently at 3/10 in intensity, constant, tender/sore/stabbing pain that escalates as high as 9/10 w standing/sitting for periods of 30 min or more. Palliated with PT in October 2021 x 4 weeks, home exercise regimen, massage integrated with PT, heat, medications (Ibuprofen, [place], Flexeril), topicals, laying supine, repositioning and rest. PMH: Diverticulitis PSH: Denies SH: Daily tobacco use, Rare ETOH use, No illicit drug use. FH: Non contributory All: Morphine Meds: See list REVIEW OF ORGAN SYSTEMS: CONSTITUTIONAL: No fevers or chills. No recent weight loss. NEUROLOGICAL: + numbness and tingling along the distal extremities. No seizure disorders or headaches. MUSCULOSKELETAL: + pain PSYCHIATRIC: Denies current depression or suicidal thoughts. Physical Examinations : Constitutional : Cooperative , not in acute distress . Neurologic : Cranial nerve II to XII intact. No focal neurological deficits. Psychiatric : alert & oriented x 3. Matching mood & appropriate affect. Judgment & insight intact. Musculoskeletal : Cervical Spine Motor strength in the deltoid and biceps: Normal right side. Normal Left side Motor strength biceps and the wrist extensors: Normal right side . Normal left side Motor strength in the triceps muscle: Normal right side. Normal left side Deep tendon reflexes: Normal at the biceps. Normal at Brachioradialis. Normal at triceps Vertebral body tenderness to deep palpation over Cervical facet loading test: positive bilaterally Spurling test: positive bilaterally Neck distraction test: positive bilaterally Kevin sign: positive bilaterally Lumbar spine Motor strength lower extremities ,thigh and legs 5/5 Right side , 5/5 Left side Deep tendon reflexes : Normal Knee Jerk. Normal Ankle Jerk Vertebral body tenderness over Lumbar facet Loading Test: positive Right / positive Left Range of motion of the lumbar spine Flexion 30 degrees, extension 10 degrees Straight Leg Raise test: Left/ Right positive at degree Halina test: positive right / positive left. Severe tenderness over the Sacroiliac joint on the Right / Left sides Gaenslen test: positive bilaterally Seated flexion test: positive bilaterally. Sacral spine : Severe tenderness over the Sacroiliac joint: right side / left side Range of motion: Flexion of the lumbar spine <60 degrees Range of motion: Extension of the lumbar spine <20 degrees Gaenslen's Test positive Suraj's Test positive Halina test: positive right side / left side Thigh Thrust Test Sacral Thrust Test Imaging: CT scan without contrast of the lumbar spine from 01/22/22 reviewed Assessment/ Plan : Lumbar DDD Recommendation of BART L4-L5 #1. May need a series of injections, up to 3 within a six-month timeframe, for optimal pain relief. Risks, benefits of procedure discussed and patient verbalized understanding. Denies aspirin or anti- coagulant use or medical history of diabetes. Protocol for discontinuation/ continuation of medications katrina procedure discussed. All questions answered. I have spent greater than 30 minutes on patient care today. Dr Healy was available by phone for the evaluation of this patient. The time was used to review the medical records including relevant urine studies and Prescription history (MAPs), review of the available imaging, evaluation and examination of the patient, coordination of care with the medical staff and if applicable referring physicians, as well as creation of the medical record - Pain Location Bilateral Lower Back Non-Pharmacological Interventions: Heat, Inactivity, Massage, Physical Therapy Pharmacological Interventions: Medication, Scheduled Medication, Topical Medication PQRS Narrative: Smoking Status Current every day smoker Home Medications: Ambulatory Orders Dextroamphetamine/Amphetamine [Dextroamp-Amphetamin 20 mg Tab] 20 mg PO TID 01/12/21 Ibuprofen [Motrin] 800 mg PO QID PRN 01/12/21 Magnesium Salicylate [Percogesic Backache Relief] 580 mg PO Q6H PRN 01/12/21 Amoxic-Pot Clav 875-125Mg [Augmentin 875-125] 1 each PO Q12HR #20 tab 01/16/21 metroNIDAZOLE [Flagyl] 500 mg PO TID #30 tab 01/16/21 Controlled Substance Measures - Controlled Substance Measures Is patient prescribed a controlled substance at discharge?: No
== END ==
LOC: PNWHC3 09:04
PROVIDERS: ATTEND Specialist
DX: M51.26 Other intervertebral disc displacement, lumbar region (principal); M51.36 Other intervertebral disc degeneration, lumbar region; Z88.5 Allergy status to narcotic agent; F17.200 Nicotine dependence, unspecified, uncomplicated
CPT/HCPCS: 99211

== ENCOUNTER 2022-04-03 07:26 | Day surgery (SDC) | payer BC, OTHER ==
[2022-04-02 09:08] VITALS: BMI 34.9
[~2022-04-03 07:26] MED LIST: LACTATED RINGERS 1,000 ML IV SCH; LIDOCAINE 1% (10MG/ML) FOR IV START INTRADERMA PRN
[2022-04-03 07:55] VITALS: RESP 18; TEMP 97.8
[2022-04-03] MEDS ORDERED: fentaNYL (PF) 50 MCG/ML 2 ML AMP ONE (08:08)
[2022-04-03] MEDS ORDERED: methylPREDNISolone ACETATE 80 MG/ML 1 ML VIAL ONE (08:08)
[2022-04-03] MEDS ORDERED: MIDAZOLAM 2 MG/2 ML VIAL ONE (08:08)
[2022-04-03] MEDS ORDERED: IOPAMIDOL M200 10 ML VIAL ONE (08:08)
--- NOTE | 2022-04-03 08:18 | P.PCN ---
Date of Procedure: 04/03/22 Procedure(s) Performed: PREOPERATIVE DIAGNOSIS: 1- Lumbar Degenerative Disc Diseases 2-Lumbar spondylosis with Facet arthropathy without myelopathy. 3-lumbar radiculopathy POSTOPERATIVE DIAGNOSIS: Same as preop diagnosis. PROCEDURE 1. Lumbar epidural steroid injection under fluoroscopic guidance at the L4-5 level. (Fluoroscopy imaging was available in radiology department) 2. Lumbar epidurogram. ANESTHESIA: moderate sedation with intravenous Versed 2 mg ,and fentanyle 100 Mcg Sedation start time : 0 810 Sedation end time : 0 816 EBL: Minimal PROCEDURE INDICATION: The patient with low back pain and radiculitis symptoms unresponsive to conservative treatment. Fluoroscopy was used to optimize visualization of the needle placement and to maximize safety. PROCEDURE DESCRIPTION / TECHNIQUE: The patient was seen and identified in the preoperative area. Risks, benefits, complications including but not limited to infections ,bleeding ,allergic reaction to the medications ,nerve damage and not complete pain releife , and alternatives were discussed with the patient. The patient agreed to proceed with the procedure and signed the consent. IV was started, and vital signs were stable. Patient was taken to the OR and time out was completed. The patient was placed in the prone position on procedure table and a pillow was placed under the abdomen to reduce lumbar lordosis. The lumbosacral area was prepped and draped in the usual sterile fashion.ere closely monitored during the procedure. Conscious sedation was used during the procedure to decrease patients anxiety. Vital signs was monitered during the entire procedure. Using anterior-posterior fluoroscopy, the L4-5 interlaminar space was identified and the skin over this site was marked and then infiltrated with 1% lidocaine subcutaneously. Subsequently, a 20-gauge Tuohy epidural needle was inserted and advanced toward the epidural space using the ``Loss of resistance technique and guided by AP and lateral fluoroscopy. The correct needle position in the epidural space was verified with the injection of 2 mL of the water soluble contrast dye Isovue 200 contrast and observing an excellent epidurogram with the epidural spread of the dye, after negative aspiration for blood and CSF and in the absence of paresthesias. Again after negative aspiration, a 6 ml mixture containing 80 mg of Depo-medrol , and 2 ml of preservative free Normal Saline, and 2 ml of preservative free lidocaine 1% solution was injected and a washout of epidurogram was seen. Needle was withdrawn intact, skin was cleansed, and bandages were applied. COMPLICATIONS: None DISPOSITION / PLANS: The patient was placed in a supine position and transferred to the recovery area in a stable condition for observation. There was no evidence of lower extremity motor or sensory deficit after the procedure. Patient was discharged from the recovery room after meeting discharge criteria. Home discharge instructions were given to the patient by the staff. The patient was reexamined prior to discharge. The patient will schedule a follow up in the clinic in 2-4 weeks.
[2022-04-03] MEDS ORDERED: IV FLUID CONTINUATION 1,000 ML IV ONE (08:31)
[2022-04-03 08:37] VITALS: BP 121/88; PULSE 88
--- NOTE | 2022-04-03 09:10 | FL ---
EXAMINATION TYPE: FL guided pain mgmt statistic DATE OF EXAM: 04/03/2022 CLINICAL HISTORY: Low back pain. TECHNIQUE: Fluoroscopy. COMPARISON: None. FINDINGS: Fluoroscopic guidance was provided during pain relief procedure performed by Dr. Healy . A total of 1 seconds of fluoroscopic time was utilized during the procedure and 1 spot images are acquired. Single image acquired shows needle localization at L4-L5 level. IMPRESSION: As Above.
== END 2022-04-03 09:01 | disposition home or self-care (01) ==
LOC: ORPAIN 07:26
PROVIDERS: ATTEND Anesthesiology
DX: M51.16 Intervertebral disc disorders with radiculopathy, lumbar region (principal); M47.26 Other spondylosis with radiculopathy, lumbar region; Z88.5 Allergy status to narcotic agent
CPT/HCPCS: 62323; J2250; J1040; J3010; Q9966

== ENCOUNTER 2022-05-21 16:06 | Emergency (ER) | payer BC, OTHER ==
[2022-05-21 16:15] VITALS: TEMP 98
[2022-05-21] MEDS ORDERED: ONDANSETRON 4 MG/2 ML VIAL IVP STA (16:49)
[2022-05-21] MEDS ORDERED: SODIUM CHLORIDE 0.9% 1,000 ML IV STA (16:49)
[2022-05-21] MEDS ORDERED: ARTIFICIAL TEARS OINTMENT 3.5 GM TUBE BOTH EYES STA (16:49)
--- NOTE | 2022-05-21 17:03 | ED ---
General Adult HPI - General Chief complaint: Neuro Symptoms/Deficit Stated complaint: numbness left facial Time Seen by Provider: 05/21/22 16:29 Source: patient Mode of arrival: ambulatory Limitations: no limitations - History of Present Illness Initial comments: Dictation was produced using [employer] dictation software. please excuse any grammatical, word or spelling errors. Chief Complaint: 37-year-old male presents emergency Department with left facial weakness History of Present Illness: Patient is 37-year-old male presents emergency Department with left facial weakness 4 hours. Patient has been suffering from a URI for the last 3-4 days. He's been having significant vomiting. Patient has had a cough. Does have runny nose. No obvious sick exposures. Today at around 1 PM he noticed that while he was drinking water, water was leaking out this left side of his mouth. He woke this morning in his left eye felt sticky. The ROS documented in this emergency department record has been reviewed and confirmed by me. Those systems with pertinent positive or negative responses have been documented in the HPI. All other systems are other negative and/or noncontributory. PHYSICAL EXAM: General Impression: Alert and oriented x3, not in acute distress HEENT: Normocephalic atraumatic, extra-ocular movements intact, pupils equal and reactive to light bilaterally, mucous membranes moist. Cardiovascular: Heart regular rate and rhythm Chest: Able to complete full sentences, no retractions, no tachypnea Abdomen: abdomen soft, non-tender, non-distended, no organomegaly Musculoskeletal: Pulses present and equal in all extremities, no peripheral edema Motor: no focal deficits noted Neurological: Left periorbital weakness, left facial droop Skin: Intact with no visualized rashes Psych: Normal affect and mood ED course: 37-year-old male presents emergency Department with URI and associated borden palsy of the left face. Labs evaluation obtained. CBC, metabolic panel is unremarkable. For panel viral PCR is negative. Chest x-ray is nonacute. Patient counseled on eye care. Patient given prescription for steroids and antiviral medications. - Related Data Home Medications Medication Instructions Recorded Confirmed Ibuprofen [Motrin] 800 mg PO QID PRN 01/12/21 05/21/22 Cyclobenzaprine [Flexeril] 10 mg PO BID 03/12/22 05/21/22 Dextroamphetamine/Amphetamine 20 mg PO TID 03/12/22 05/21/22 [Adderall 20 mg Tablet] HYDROcodone/APAP 7.5-325MG [[place] 1 tab PO QID PRN 04/03/22 05/21/22 7.5-325] Naloxone HCl [Narcan] 4 mg NASAL DAILY PRN 05/21/22 05/21/22 Sildenafil [Revatio] 20 mg PO DAILY PRN 05/21/22 05/21/22 Previous Rx's Medication Instructions Recorded Artificial Tears-Hypromellose 1 drops LEFT EYE TID #10 ml 05/21/22 [Artificial Tear Drops] Erythromycin Ophth Oint [Romycin 1 applic LEFT EYE DAILY #1 gm 05/21/22 Ophth Oint] Ondansetron Odt [Zofran Odt] 4 mg PO Q8HR PRN #12 tab 05/21/22 predniSONE 80 mg PO DAILY 7 Days #14 tab 05/21/22 valACYclovir HCL [Valtrex] 1,000 mg PO DAILY 7 Days #7 tablet 05/21/22 Allergies Allergy/AdvReac Type Severity Reaction Status Date / Time No Known Allergies Allergy Verified 05/21/22 18:09 Review of Systems ROS Statement: Those systems with pertinent positive or pertinent negative responses have been documented in the HPI. ROS Other: All systems not noted in ROS Statement are negative. Past Medical History Additional Past Medical History / Comment(s): migraines, acute lower back pain, bulging disks L2 and L4, diveticulitis History of Any Multi-Drug Resistant Organisms: None Reported Past Surgical History: No Surgical Hx Reported Additional Past Surgical History / Comment(s): colonoscopy, Past Anesthesia/Blood Transfusion Reactions: No Reported Reaction Past Psychological History: No Psychological Hx Reported Smoking Status: Current every day smoker Past Alcohol Use History: None Reported Past Drug Use History: None Reported - Past Family History Mother Family Medical History: No Reported History General Exam Limitations: no limitations Course Vital Signs 05/21/22 05/21/22 16:11 18:44 Temperature 98 F Pulse Rate 89 71 Respiratory 16 18 Rate Blood Pressure 149/112 122/80 O2 Sat by Pulse 97 98 Oximetry Medical Decision Making - Lab Data Result diagrams: 05/21/22 17:29 05/21/22 17:29 Lab Results 05/21/22 05/21/22 05/21/22 Range/Units 17:29 17:29 17:29 WBC 7.5 (3.8-10.6) k/uL RBC 4.95 (4.30-5.90) m/uL Hgb 15.6 (13.0-17.5) gm/dL Hct 45.1 (39.0-53.0) % MCV 91.2 (80.0-100.0) fL MCH 31.5 (25.0-35.0) pg MCHC 34.5 (31.0-37.0) g/dL RDW 12.5 (11.5-15.5) % Plt Count 252 (150-450) k/uL MPV 7.6 Neutrophils % 61 % Lymphocytes % 25 % Monocytes % 6 % Eosinophils % 6 % Basophils % 1 % Neutrophils # 4.6 (1.3-7.7) k/uL Lymphocytes # 1.8 (1.0-4.8) k/uL Monocytes # 0.5 (0-1.0) k/uL Eosinophils # 0.5 (0-0.7) k/uL Basophils # 0.1 (0-0.2) k/uL Sodium 141 (137-145) mmol/L Potassium 3.9 (3.5-5.1) mmol/L Chloride 102 (98-107) mmol/L Carbon Dioxide 27 (22-30) mmol/L Anion Gap 12 mmol/L BUN 17 (9-20) mg/dL Creatinine 0.90 (0.66-1.25) mg/dL Est GFR (CKD-EPI)AfAm >90 (>60 ml/min/1.73 sqM) Est GFR (CKD-EPI)NonAf >90 (>60 ml/min/1.73 sqM) Glucose 124 H (74-99) mg/dL Calcium 9.2 (8.4-10.2) mg/dL Total Bilirubin 0.6 (0.2-1.3) mg/dL AST 56 (17-59) U/L ALT 72 H (4-49) U/L Alkaline Phosphatase 114 (38-126) U/L Total Protein 7.3 (6.3-8.2) g/dL Albumin 4.5 (3.5-5.0) g/dL Influenza Type A (PCR) Not Detected (Not Detectd) Influenza Type B (PCR) Not Detected (Not Detectd) RSV (PCR) Not Detected (Not Detectd) SARS-CoV-2 (PCR) Not Detected (Not Detectd) Disposition Clinical Impression: Borden palsy Disposition: HOME SELF-CARE Condition: Good Instructions (If sedation given, give patient instructions): Borden Palsy (ED) Additional Instructions: Cornea eye protection Artificial tears qhr while patient is awake Ophthalmic ointment at night Eye should be taped shut at night Protective glasses or goggles Prescriptions: Artificial Tears-Hypromellose [Artificial Tear Drops] 1 drops LEFT EYE TID #10 ml predniSONE 80 mg PO DAILY 7 Days #14 tab Erythromycin Ophth Oint [Romycin Ophth Oint] 1 applic LEFT EYE DAILY #1 gm valACYclovir HCL [Valtrex] 1,000 mg PO DAILY 7 Days #7 tablet Ondansetron Odt [Zofran Odt] 4 mg PO Q8HR PRN #12 tab PRN Reason: Nausea Is patient prescribed a controlled substance at d/c from ED?: No Referrals: Domingo Palomares MD [Primary Care Provider] - 1-2 days Time of Disposition: 19:09
[2022-05-21 17:46] LABS: Basophils # (A) 0.1 k/uL (0-0.2); Basophils % (A) 1 %; Eosinophils # (A) 0.5 k/uL (0-0.7); Eosinophils % (A) 6 %; HCT 45.1 % (39.0-53.0); HGB 15.6 gm/dL (13.0-17.5); Lymphocytes # (A) 1.8 k/uL (1.0-4.8); Lymphocytes % (A) 25 %; MCH 31.5 pg (25.0-35.0); MCHC 34.5 g/dL (31.0-37.0); MCV 91.2 fL (80.0-100.0); Mean Platelet Volume 7.6; Monocytes # (A) 0.5 k/uL (0-1.0); Monocytes % (A) 6 %; Neutrophils # (A) 4.6 k/uL (1.3-7.7); Neutrophils % (A) 61 %; Platelet Count 252 k/uL (150-450); RBC 4.95 m/uL (4.30-5.90); RDW 12.5 % (11.5-15.5); WBC 7.5 k/uL (3.8-10.6)
[2022-05-21] MEDS: ARTIFICIAL TEARS-HYPROMELLOSE DROPS 15 ML BTL LEFT EYE SCH ×3 (17:53→19:12)
[2022-05-21 17:56] LABS: ALT 72 U/L (4-49); AST 56 U/L (17-59); African American GFR (CKD) >90 (>60 ml/min/1.73 sqM); Albumin 4.5 g/dL (3.5-5.0); Alkaline Phosphatase 114 U/L (38-126); Anion Gap 12 mmol/L; Blood Urea Nitrogen 17 mg/dL (9-20); Calcium 9.2 mg/dL (8.4-10.2); Carbon Dioxide 27 mmol/L (22-30); Chloride 102 mmol/L (98-107); Glucose 124 mg/dL (74-99); Non-African American GFR(CKD) >90 (>60 ml/min/1.73 sqM); Potassium 3.9 mmol/L (3.5-5.1); Sodium 141 mmol/L (137-145); Total Bilirubin 0.6 mg/dL (0.2-1.3); Total Protein 7.3 g/dL (6.3-8.2)
[2022-05-21 18:46] VITALS: BP 122/80; PULSE 71; RESP 18
--- NOTE | 2022-05-21 18:54 | XR ---
EXAMINATION TYPE: XR chest 2V DATE OF EXAM: 05/21/2022 6:08 PM COMPARISON: Chest radiographs from on TECHNIQUE: XR chest 2V Frontal and lateral views of the chest. CLINICAL INDICATION:Male, 37 years old with history of cough; FINDINGS: Lungs/Pleura: There is no evidence of pleural effusion, focal consolidation, or pneumothorax. Pulmonary vascularity: Unremarkable. Heart/mediastinum: Cardiomediastinal silhouette is unremarkable. Musculoskeletal: No acute osseous pathology. IMPRESSION: No acute cardiopulmonary disease/process.
== END 2022-05-21 19:26 | disposition home or self-care (01) ==
LOC: EC 16:06
DX: G51.0 Bell's palsy (principal); F17.200 Nicotine dependence, unspecified, uncomplicated; Z20.822 Contact with and (suspected) exposure to COVID-19
CPT/HCPCS: 36415; 80053; 85025; 87636; 71046; 99284; J2405; 96361; 96374

== ENCOUNTER 2024-06-13 19:14 | Emergency (ER) | payer OTHER ==
[2024-06-13 19:19] VITALS: RESP 18
--- NOTE | 2024-06-13 19:37 | ED ---
Syncope HPI - General Chief Complaint: Fall Stated Complaint: Syncope Time Seen by Provider: 06/13/24 19:21 Source: patient, RN notes reviewed Mode of arrival: ambulatory Limitations: no limitations - History of Present Illness Initial Comments: This is a 39-year-old male who presents to the emergency department for a syncopal episode. Patient had just gotten home from work and shortly after getting out of the van, believes that he passed out in the driveway. The last thing he remembers is pulling into the driveway. His states that he walked inside holding his head that was bleeding from the back and acting confused. She is unsure how long he would have been passed out for. Patient denies any prodromal symptoms, hx of seizures, or similar episodes in the past. Denies any hx of cardiac problems. Denies any dizziness, chest pain, or shortness of breath. States that he currently has a headache and right shoulder pain. MD Complaint: loss of consciousness - Related Data Home Medications Medication Instructions Recorded Confirmed Ibuprofen [Motrin] 800 mg PO QID PRN 01/12/21 05/21/22 Cyclobenzaprine [Flexeril] 10 mg PO BID 03/12/22 05/21/22 Dextroamphetamine/Amphetamine 20 mg PO TID 03/12/22 05/21/22 [Adderall 20 mg Tablet] HYDROcodone/APAP 7.5-325MG [[place] 1 tab PO QID PRN 04/03/22 05/21/22 7.5-325] Naloxone HCl [Narcan] 4 mg NASAL DAILY PRN 05/21/22 05/21/22 Sildenafil [Revatio] 20 mg PO DAILY PRN 05/21/22 05/21/22 Previous Rx's Medication Instructions Recorded Artificial Tears-Hypromellose 1 drops LEFT EYE TID #10 ml 05/21/22 [Artificial Tear Drops] Erythromycin Ophth Oint [Romycin 1 applic LEFT EYE DAILY #1 gm 05/21/22 Ophth Oint] Ondansetron Odt [Zofran Odt] 4 mg PO Q8HR PRN #12 tab 05/21/22 predniSONE 80 mg PO DAILY 7 Days #14 tab 05/21/22 valACYclovir HCL [Valtrex] 1,000 mg PO DAILY 7 Days #7 tablet 05/21/22 Ibuprofen [Motrin] 800 mg PO Q8H PRN #30 tab 06/13/24 methocarbamoL [Robaxin-750] 1,500 mg PO TID PRN #30 tab 06/13/24 Allergies Allergy/AdvReac Type Severity Reaction Status Date / Time No Known Allergies Allergy Verified 06/13/24 19:19 Review of Systems ROS Statement: Those systems with pertinent positive or pertinent negative responses have been documented in the HPI. ROS Other: All systems not noted in ROS Statement are negative. Past Medical History Additional Past Medical History / Comment(s): migraines, acute lower back pain, bulging disks L2 and L4, diveticulitis History of Any Multi-Drug Resistant Organisms: None Reported Past Surgical History: No Surgical Hx Reported Additional Past Surgical History / Comment(s): colonoscopy, Past Anesthesia/Blood Transfusion Reactions: No Reported Reaction Past Psychological History: No Psychological Hx Reported Smoking Status: Current every day smoker Past Alcohol Use History: None Reported Past Drug Use History: None Reported - Past Family History Mother Family Medical History: No Reported History General Exam Limitations: no limitations General appearance: alert, in no apparent distress Head exam: Present: other (Horizontal laceration over the occiput) Eye exam: Present: normal appearance, PERRL, EOMI. Absent: scleral icterus, conjunctival injection, periorbital swelling Respiratory exam: Present: normal lung sounds bilaterally. Absent: respiratory distress, wheezes, rales, rhonchi, stridor Cardiovascular Exam: Present: regular rate, normal rhythm, normal heart sounds. Absent: systolic murmur, diastolic murmur, rubs, gallop, clicks Extremities exam: Present: other (Tenderness over the right shoulder. Range of motion limited by pain. 2+ radial pulses) Neurological exam: Present: alert, oriented X3, CN II-XII intact Psychiatric exam: Present: normal affect, normal mood Course Vital Signs 06/13/24 06/13/24 06/13/24 19:16 21:35 22:14 Temperature 97.7 F 98.5 F Pulse Rate 98 84 Pulse Rate [ 90 Sitting] Pulse Rate [ 102 H Standing] Pulse Rate [ 87 Supine] Respiratory 18 18 Rate Blood Pressure 159/104 138/100 Blood Pressure 143/102 [Left Arm Sitting] Blood Pressure 138/102 [Left Arm Standing] Blood Pressure 137/94 [Left Arm Supine] O2 Sat by Pulse 100 98 Oximetry Procedures - Laceration Laceration #1 Consent Obtained: verbal consent Indication: laceration Site: scalp Size (cm): 3 Description: linear Depth: simple, single layer Type of Sutures: other (Renay) Number of Sutures: 2 Medical Decision Making - Medical Decision Making This is a 39 year old male who presents to the emergency department for a syncopal episode. Was pt. sent in by a medical professional or institution? @ -No Did you speak to anyone other than the patient for history? @ -His provided the information about him coming inside holding his head and seeming confused. Did you review nursing and triage notes? @ -Yes, and I agree, it is accurate with regards to the patient's symptoms. Were old charts reviewed? @ -No Differential Diagnosis? @ -Differential Syncope: Valvular disease, hypertrophic cardiomyopathy, pulmonary embolism, tamponade, tachycardia, bradycardia, [place], hypovolemia, hemorrhage, dissection, anemia, intracranial hemorrhage, seizure, hypoglycemia, carbon monoxide poisoning, this is not meant to be an all-inclusive list. EKG interpreted by me (3pts min.)? @ -EKG interpreted by me demonstrating the following: Sinus rhythm. Ventricula r rate 99 bpm, MN interval 160 ms, QRS duration 95 ms, QTc 397 ms. X-rays interpreted by me (1pt min.)? @ -Chest x-ray obtained, my interpretation identifies no localized con solidations or infiltrates. X-ray of the right shoulder and right elbow obtained. My interpretation identifies no acute fractures. CT interpreted by me (1pt min.)? @ -Computed tomography scan of the brain and c-spine obtained. My interpretation identifies no evidence of an acute intracranial hemorrhage, skull fracture, or cervical spine fracture. U/S interpreted by me (1pt. min.)? @ -Not obtained What testing was considered but not performed? (CT, X-rays, U/S, labs)? Why? @ -None What meds were considered but not given? Why? @ -None Did you discuss the management of the patient with other professionals? @ -No Did you reconcile home meds? @ -No Was smoking cessation discussed for >3mins.? @ -I discussed smoking cessation for greater than 3 minutes. The risk of smoking were discussed with the patient including but not limited to risks of cancer, stroke, coronary artery disease and COPD. Also discussed with patient were multiple methods of quitting smoking. Lastly we discussed the financial cost of smoking. Was critical care preformed (if so, how long)? @ -No Were there social determinants of health that impacted care today? How? (Homelessness, low income, unemployed, alcoholism, drug addiction, transportation, low edu. Level, literacy, decrease access to med. care, fpc, rehab)? @ -No Was there de-escalation of care discussed even if they declined? (Discuss DNR or withdrawal of care, Hospice)? @ -No What co-morbidities impacted this encounter? (DM, HTN, Smoking, COPD, CAD, Cancer, CVA, Hep., AIDS, mental health diagnosis, sleep apnea, morbid obesity)? @ -Smoking Was patient admitted / discharged? @ -Discharged. Lab work demonstrates mild leukocytosis with a white blood cell count of 12.6 and was otherwise unremarkable. D-dimer and troponin negative. C T scan of the brain and C-spine reveals no acute process. Chest x-ray reveals no acute findings. X-ray of the right shoulder and right elbow obtained as well, also revealing no acute injuries. Orthostatics negative. Symptoms managed in the emergency department. The laceration on his scalp was cleansed and repaired with renay. Ibuprofen and Robaxin prescribed for pain control. Advise returning in 10 to 14 days for staple removal. He was given strict return parameters and advised to have close follow-up with his PCP for reevaluation of this episode. Patient discharged home with family in stable condition. Case discussed with ED attending Dr. Gutierrez. Return precautions reviewed in depth, the patient is instructed to return to the emergency department with any new, worsening, or concerning symptoms. Patient verbalized understanding. Undiagnosed new problem with uncertain prognosis? @ -None Drug Therapy requiring intensive monitoring for toxicity (Heparin, Nitro, Insulin, Cardizem)? @ -None Were any procedures done? @ -Laceration repair with renay Diagnosis/symptom? @ -Syncope, laceration, head injury, shoulder sprain Acute, or Chronic, or Acute on Chronic? @ -Acute Uncomplicated (without systemic symptoms) or Complicated (systemic symptoms)? @ -Uncomplicated Side effects of treatment? @ -None Exacerbation, Progression, or Severe Exacerbation] @ -Not applicable Poses a threat to life or bodily function? @ -This will depend on the cause of the syncopal episode - Lab Data Result diagrams: 06/13/24 19:30 06/13/24 19:30 Lab Results 06/13/24 06/13/24 06/13/24 Range/Units 19:30 19:30 19:30 WBC 12.6 H (3.8-10.6) k/uL RBC 4.71 (4.30-5.90) m/uL Hgb 14.8 (13.0-17.5) gm/dL Hct 42.8 (39.0-53.0) % MCV 90.8 (80.0-100.0) fL MCH 31.5 (25.0-35.0) pg MCHC 34.7 (31.0-37.0) g/dL RDW 12.8 (11.5-15.5) % Plt Count 346 (150-450) k/uL MPV 6.9 Neutrophils % 65 % Lymphocytes % 26 % Monocytes % 4 % Eosinophils % 3 % Basophils % 0 % Neutrophils # 8.2 H (1.3-7.7) k/uL Lymphocytes # 3.3 (1.0-4.8) k/uL Monocytes # 0.5 (0-1.0) k/uL Eosinophils # 0.4 (0-0.7) k/uL Basophils # 0.1 (0-0.2) k/uL PT 10.1 (10.0-12.5) sec INR 0.9 (<1.2) APTT 26.2 (22.0-30.0) sec D-Dimer 0.18 (<0.60) mg/L FEU Sodium 142 (137-145) mmol/L Potassium 4.3 (3.5-5.1) mmol/L Chloride 106 (98-107) mmol/L Carbon Dioxide 27 (22-30) mmol/L Anion Gap 9 mmol/L BUN 16 (9-20) mg/dL Creatinine 0.99 (0.66-1.25) mg/dL Est GFR (CKD-EPI)AfAm >90 (>60 ml/min/1.73 sqM) Est GFR (CKD-EPI)NonAf >90 (>60 ml/min/1.73 sqM) Glucose 119 H (74-99) mg/dL POC Glucose (mg/dL) (70-110) mg/dL POC Glu Phlebotomy Program Coordinator ID Plasma Lactic Acid Mahad (0.7-2.0) mmol/L Calcium 9.5 (8.4-10.2) mg/dL Magnesium 2.2 (1.6-2.3) mg/dL Total Bilirubin 0.6 (0.2-1.3) mg/dL AST 47 (17-59) U/L ALT 53 H (4-49) U/L Alkaline Phosphatase 104 (38-126) U/L Troponin I (0.000-0.034) ng/mL Total Protein 8.1 (6.3-8.2) g/dL Albumin 4.9 (3.5-5.0) g/dL Serum Alcohol <10 mg/dL 06/13/24 06/13/24 06/13/24 Range/Units 19:30 19:33 19:34 WBC (3.8-10.6) k/uL RBC (4.30-5.90) m/uL Hgb (13.0-17.5) gm/dL Hct (39.0-53.0) % MCV (80.0-100.0) fL MCH (25.0-35.0) pg MCHC (31.0-37.0) g/dL RDW (11.5-15.5) % Plt Count (150-450) k/uL MPV Neutrophils % % Lymphocytes % % Monocytes % % Eosinophils % % Basophils % % Neutrophils # (1.3-7.7) k/uL Lymphocytes # (1.0-4.8) k/uL Monocytes # (0-1.0) k/uL Eosinophils # (0-0.7) k/uL Basophils # (0-0.2) k/uL PT (10.0-12.5) sec INR (<1.2) APTT (22.0-30.0) sec D-Dimer (<0.60) mg/L FEU Sodium (137-145) mmol/L Potassium (3.5-5.1) mmol/L Chloride (98-107) mmol/L Carbon Dioxide (22-30) mmol/L Anion Gap mmol/L BUN (9-20) mg/dL Creatinine (0.66-1.25) mg/dL Est GFR (CKD-EPI)AfAm (>60 ml/min/1.73 sqM) Est GFR (CKD-EPI)NonAf (>60 ml/min/1.73 sqM) Glucose (74-99) mg/dL POC Glucose (mg/dL) 123 H (70-110) mg/dL POC Glu Phlebotomy Program Coordinator MARIA L Blue Plasma Lactic Acid Mahad 1.4 (0.7-2.0) mmol/L Calcium (8.4-10.2) mg/dL Magnesium (1.6-2.3) mg/dL Total Bilirubin (0.2-1.3) mg/dL AST (17-59) U/L ALT (4-49) U/L Alkaline Phosphatase (38-126) U/L Troponin I <0.012 (0.000-0.034) ng/mL Total Protein (6.3-8.2) g/dL Albumin (3.5-5.0) g/dL Serum Alcohol mg/dL - Radiology Data Radiology results: report reviewed, image reviewed Disposition Clinical Impression: Syncope, Head injury, Sprain of shoulder, right, Laceration, Nicotine dependence Disposition: HOME SELF-CARE Instructions (If sedation given, give patient instructions): Syncope (ED), Shoulder Sprain (ED) Additional Instructions: Return to the emergency department with any new, worsening, or concerning symptoms. Alternate with ibuprofen and Tylenol as needed for pain relief. Take the Robaxin as 1 to 2 tablets up to 3-4 times daily. Follow up with your primary care provider in 1-2 days. Prescriptions: Ibuprofen [Motrin] 800 mg PO Q8H PRN #30 tab PRN Reason: Pain methocarbamoL [Robaxin-750] 1,500 mg PO TID PRN #30 tab PRN Reason: Pain Is patient prescribed a controlled substance at d/c from ED?: No Referrals: Domingo Palomares MD [Primary Care Provider] - 1-2 days Time of Disposition: 21:46
[2024-06-13 19:41] LABS: Glucose,Whole Blood 123 mg/dL (70-110)
[2024-06-13] MEDS: KETOROLAC 15 MG/ML 1 ML VIAL IVP STA (19:43)
[2024-06-13] MEDS: SODIUM CHLORIDE 0.9% 1,000 ML IV STA (19:45)
[2024-06-13 19:58] LABS: Basophils # (A) 0.1 k/uL (0-0.2); Basophils % (A) 0 %; Eosinophils # (A) 0.4 k/uL (0-0.7); Eosinophils % (A) 3 %; HCT 42.8 % (39.0-53.0); HGB 14.8 gm/dL (13.0-17.5); Lymphocytes # (A) 3.3 k/uL (1.0-4.8); Lymphocytes % (A) 26 %; MCH 31.5 pg (25.0-35.0); MCHC 34.7 g/dL (31.0-37.0); MCV 90.8 fL (80.0-100.0); Mean Platelet Volume 6.9; Monocytes # (A) 0.5 k/uL (0-1.0); Monocytes % (A) 4 %; Neutrophils # (A) 8.2 k/uL (1.3-7.7); Neutrophils % (A) 65 %; Platelet Count 346 k/uL (150-450); RBC 4.71 m/uL (4.30-5.90); RDW 12.8 % (11.5-15.5); WBC 12.6 k/uL (3.8-10.6)
--- NOTE | 2024-06-13 20:07 | XR ---
EXAMINATION TYPE: XR chest 2V DATE OF EXAM: 06/13/2024 8:01 PM COMPARISON: Prior chest radiograph 05/21/2022. CLINICAL INDICATION: Male, 39 years old with history of Syncope; [facility] TECHNIQUE: XR chest 2V Frontal and lateral views of the chest. FINDINGS: Lungs/Pleura: There is no evidence of pleural effusion, focal consolidation, or pneumothorax. Pulmonary vascularity: Unremarkable. Heart/mediastinum: Cardiomediastinal silhouette is unremarkable. Musculoskeletal: No acute osseous pathology. Other findings: None IMPRESSION: No acute cardiopulmonary disease/process. [facility], , 06/13/2024 8:05 PM
[2024-06-13 20:13] LABS: ALT 53 U/L (4-49); AST 47 U/L (17-59); African American GFR (CKD) >90 (>60 ml/min/1.73 sqM); Albumin 4.9 g/dL (3.5-5.0); Alcohol <10 mg/dL; Alkaline Phosphatase 104 U/L (38-126); Anion Gap 9 mmol/L; Blood Urea Nitrogen 16 mg/dL (9-20); Calcium 9.5 mg/dL (8.4-10.2); Carbon Dioxide 27 mmol/L (22-30); Chloride 106 mmol/L (98-107); Glucose 119 mg/dL (74-99); Magnesium 2.2 mg/dL (1.6-2.3); Non-African American GFR(CKD) >90 (>60 ml/min/1.73 sqM); Potassium 4.3 mmol/L (3.5-5.1); Sodium 142 mmol/L (137-145); Total Bilirubin 0.6 mg/dL (0.2-1.3); Total Protein 8.1 g/dL (6.3-8.2)
[2024-06-13 20:20] LABS: INR 0.9 (<1.2); Partial Thromboplastin Time 26.2 sec (22.0-30.0); Prothrombin Time 10.1 sec (10.0-12.5)
--- NOTE | 2024-06-13 20:26 | CT ---
EXAMINATION TYPE: CT brain cspine wo con DATE OF EXAM: 06/13/2024 8:12 PM COMPARISON: None. CLINICAL INDICATION: Male, 39 years old with history of Fall, head injury; Syncopal episode, hit back of head, LOC unknown time. TECHNIQUE: Brain: Multiple axial CT images of the brain were obtained without IV contrast. Cspine: Axial CT images from the skull base to the inferior aspect of T2 we obtained without intraven ous contrast. Coronal and sagittal reformatted images were also reviewed. . CT DLP: 1545.5 mGycm, Automated exposure control for dose reduction was used. FINDINGS: Brain: Extra-axial spaces: No abnormal extra-axial fluid collections. Ventricular system: Within normal limits Cerebral parenchyma: No acute intraparenchymal hemorrhage or mass effect. The perales-white junction is well differentiated. Cerebellum: Unremarkable. Mass effect: No evidence of midline shift. Intracranial vasculature: unremarkable Soft tissues: Small right posterior parietal scalp hematoma. Calvarium/osseous structures: No depressed skull fracture. Paranasal sinuses and mastoid air cells: Clear. Visualized orbits: Orbital contents are intact. Cervical spine: Fracture: None. Osseous structures: Unremarkable. Well-corticated ossific density at the right first costovertebral j unction but most likely reflects sequela of previous trauma or developmental etiology. Vertebral alignment: Within normal limits. Spinal canal/Neural Foramina: No evidence of significant spinal canal narrowing. No evidence for sign ificant neural foraminal stenosis. Neck soft tissues: Prevertebral soft tissues are within normal limits. Other: The airway is patent. The lung apices are clear. IMPRESSION: 1. No acute intracranial process. 2. No acute fracture or traumatic subluxation of the cervical spine. [facility], , 06/13/2024 8:23 PM
--- NOTE | 2024-06-13 21:03 | XR ---
EXAMINATION TYPE: XR shoulder complete RT, XR elbow complete RT DATE OF EXAM: 06/13/2024 8:52 PM COMPARISON: None available. CLINICAL INDICATION: Male, 39 years old with history of Pain from fall; [facility] TECHNIQUE: XR shoulder complete RT, XR elbow complete RT; examined in AP, internally rotated and scap ular Y projections. FINDINGS: Right shoulder: No evidence of acute osseous pathology, joint dislocation, or soft tissue swelling. The remaining po rtions of the visualized chest are unremarkable. Mild degeneration changes of the acromion and dista l clavicle. Right elbow: No acute fracture or dislocation. No significant elbow joint effusion. IMPRESSION: Right shoulder: No acute fracture or dislocation. Right elbow: No acute fracture or dislocation. [facility], , 06/13/2024 9:01 PM
[2024-06-13] MEDS: MORPHINE SULFATE 4 MG/ML SYRINGE IVP STA (21:09)
[2024-06-13] MEDS: LIDOCAINE-PRILOCAINE 2.5-2.5% CREAM 5 GM TUBE TOPICAL STA (21:15)
[2024-06-13] MEDS: HYDROmorphone 1 MG/ML 1 ML SYRINGE IVP STA (21:55)
[2024-06-13] MEDS: ORPHENADRINE 30 MG/ML 2 ML VIAL IVP STA (21:55)
[2024-06-13] MEDS: ACET/COD 300 MG/30 MG STARTER PACK 6 TAB BTL PO STA (21:56)
[2024-06-13] MEDS: CYCLOBENZAPRINE 10MG STARTER 3 TAB BTL PO STA (21:56)
[2024-06-13 22:15] VITALS: BP 138/100; PULSE 84; TEMP 98.5
== END 2024-06-13 22:16 | disposition home or self-care (01) ==
LOC: EC 19:14
DX: R55 Syncope and collapse (principal); S43.401A Unspecified sprain of right shoulder joint, initial encounter; S01.02XA Laceration with foreign body of scalp, initial encounter; F17.200 Nicotine dependence, unspecified, uncomplicated
CPT/HCPCS: 99285; 96374; 96375; 96361; 12002; 36415; 93005; 85379; 80053; 83605; 83735; 84484; 85025; 85610; 85730; 80320; 73030; 73080; 71046; 72125; 70450; 99406; J2270; J2360; J1171; J1885